=== PATIENT | female | born 1940 | race Caucasian/White ===

== ENCOUNTER 2020-07-22 08:53 | Outpatient (REF) | payer MEDICARE, SELFPAY ==
--- NOTE | 2020-07-22 | MM_ITS ---
EXAMINATION: MM DIAGNOSTIC DIGITAL BREAST TOMOSYNTHESIS, BILATERAL CLINICAL INFORMATION: Screening left breast study. Right breast calcifications inferior medially The lifetime risk of breast cancer based on the Tyrer-Cuzick Model is 0.8%. COMPARISON: Mammography: January 15, 2020 and studies dating back to May 24, 2011 TECHNIQUE: Digital breast tomosynthesis is performed in both the craniocaudal and mediolateral oblique views along with computer-aided detection (CAD). Synthesized 2D images are generated from the tomosynthesis. Spot magnification views of the right breast in craniocaudal and 90 degree mediolateral views. FINDINGS: The breasts are almost entirely fatty (ACR BI-RADS breast composition Category a). There is stable appearance of the linear calcifications about the deep inferior medial aspect of the right breast. No new abnormal dominant mass or new more suspicious grouping of microcalcifications are identified. Other vascular calcifications are evident. Recommend 1 year follow-up diagnostic study containing magnification views. There is a stable parenchymal pattern of the left breast without new abnormal dominant mass or suspicious grouping of microcalcifications. Results are provided to the patient at time of visit by the technologist. MM/MM tomosynthesis diagnostic BI IMPRESSION: There are no significant changes from prior study. ASSESSMENT: BI-RADS 3: Probably Benign RECOMMENDATION: Diagnostic mammography at time of next annual exam, due in 12 months. This patient's information was entered into a reminder system with a target due date for their next mammogram.
== END 2020-07-22 08:54 | disposition home or self-care (01) ==
LOC: HO.MAMMO 08:53
DX: R92.1 Mammographic calcification found on diagnostic imaging of breast (principal)
CPT/HCPCS: 77062; 77066

== ENCOUNTER 2020-10-29 07:43 | Outpatient (REF) | payer MEDICARE, SELFPAY ==
[2020-10-29 08:18] LABS: MANUAL DIFF FLAG NO
[2020-10-29 08:31] LABS: Basophils Percent Auto 0.9 % (0-2); Eosinophils Absolute Auto 0.8 X10*3/uL (0.0-0.4); Eosinophils Percent Auto 16.2 % (0-4); Hematocrit 39.5 % (37-47); Hemoglobin 12.6 g/dl (12.0-16.0); Imm Gran Abs Auto 0.01 X10*3/uL (0.00-0.03); Imm Gran Pct Auto 0.2 % (0.0-0.4); Lymphocytes Absolute Auto 1.4 X10*3/uL (1.2-4.9); Lymphocytes Percent Auto 30.2 % (20-40); Mean Corpuscular HGB Conc 31.9 g/dl (31.0-35.0); Mean Corpuscular Hemoglobin 28.4 pg (27.0-33.0); Mean Corpuscular Volume 89.2 fL (80-98); Monocytes Absolute Auto 0.4 X10*3/uL (0.1-1.2); Monocytes Percent Auto 8.5 % (2-11); Neutrophils Absolute Auto 2.1 X10*3/uL (2.0-8.3); Platelet Count 241 X10*3/uL (160-400); Red Blood Count 4.43 X10*6/uL (4.20-5.50); Red Cell Distribution Width 13.6 % (11.0-16.0); White Blood Count 4.7 X10*3/uL (4.8-10.8)
[2020-10-29 09:05] LABS: Alanine Aminotransferase 8 U/L (0-31); Albumin Level 4.1 g/dL (3.5-5.0); Alkaline Phosphatase 76 U/L (39-117); Anion Gap 11 (12-20); Aspartate Amino Transferase 16 U/L (5-31); Bilirubin Total 0.6 mg/dL (0.0-1.0); Blood Urea Nitrogen 9 mg/dL (9-16); Calcium 8.8 mg/dL (8.4-10.2); Carbon Dioxide 28 mmol/L (22-29); Chloride 107 mmol/L (96-108); Cholesterol 150 mg/dL; Estimated Glomerular Filt Rate > 60; Glucose Fasting 90 mg/dL (60-99); HDL Cholesterol 75 mg/dL; LDL Cholesterol Calculated 64 mg/dl; Potassium 4.9 mmol/L (3.3-5.1); Sodium 141 mmol/L (135-145); Total Protein 6.9 g/dL (6.5-8.0); Triglycerides 57 mg/dL
== END 2020-10-29 07:44 | disposition home or self-care (01) ==
LOC: HO.LAB 07:43
PROVIDERS: PCP Internal Medicine; Visit Provider Internal Medicine
DX: Z00.00 Encounter for general adult medical examination without abnormal findings (principal); E11.9 Type 2 diabetes mellitus without complications; E03.9 Hypothyroidism, unspecified
CPT/HCPCS: 36415; 80053; 80061; 84443; 85025

== ENCOUNTER 2021-02-25 07:01 | Emergency (ER) | payer MEDICARE, SELFPAY ==
--- NOTE | 2021-02-25 07:24 | ED.SKABFB ---
HPI - Skin/Abscess/Foreign Bdy General Chief complaint: General Medical Stated complaint: rash Time Seen by Provider: 02/25/21 07:23 Source: patient Mode of arrival: ambulatory Limitations: no limitations History of Present Illness MD complaint: lesion Onset (ago): day(s) (3) Tetanus up to date: yes Location: face Severity: mild Quality: pruritic Relieving factors: none Exacerbating factors: other (?after applying OTC cream) Context: new medication and recent illness (dx with poison anthony at - applied topical creams and was on oral prednisone thinks these caused hives on her face) Associated symptoms: denies other symptoms Treatments prior to arrival: OTC topical medication, Benadryl and corticosteroid Related Data Home Medications Medication Instructions Recorded Confirmed ketoconazole 2 % topical cream appl TOPICAL 10/17/20 10/28/20 omeprazole 20 mg tablet,delayed 20 mg PO DAILY 10/17/20 10/28/20 release acetaminophen 650 mg 650 mg PO Q12H 10/28/20 10/28/20 tablet,extended release albuterol sulfate 90 mcg/actuation 2 puff INHALATION Q4-6H PRN 10/28/20 10/28/20 aerosol inhaler aspirin 81 mg tablet,delayed 81 mg PO DAILY 10/28/20 10/28/20 release Previous Rx's Medication Instructions Recorded levothyroxine 75 mcg tablet 75 mcg PO DAILY #90 tab 10/26/20 amitriptyline 50 mg tablet 50 mg PO BEDTIME #90 tab 11/07/20 ezetimibe 10 mg tablet 10 mg PO DAILY #90 tab 11/07/20 rosuvastatin 10 mg tablet 10 mg PO DAILY #90 tab 11/07/20 ygoskpdzgs-jkytnzisqherw-ztbhvuhg 2 cap PO Q4-6H PRN #60 cap 01/31/21 50 mg-325 mg-40 mg capsule vpvnfjhrtp-bxkmndz-hxicxdxr 50 1 cap PO Q6H PRN #10 cap 02/13/21 mg-325 mg-40 mg capsule prednisone 10 mg tablet 10 mg PO .COMPLEX #45 tab 02/21/21 cetirizine 10 mg PO DAILY 7 Days #30 tab 02/25/21 diphenhydramine HCl [Benadryl] 1 appl TOPICAL BID PRN #103 ml 02/25/21 famotidine [Pepcid] 20 mg PO DAILY 7 Days #30 tab 02/25/21 hydrocortisone [Anti-Itch (HC)] 1 appl TOPICAL BID 7 Days #28.35 g 02/25/21 Allergies Allergy/AdvReac Type Severity Reaction Status Date / Time latex [LATEX] Allergy Intermediate SWELLING Verified 10/28/20 14:30 Penicillins [PENICILLINS] AdvReac Unknown HEADACHE Verified 10/28/20 14:30 Review of Systems Review of Systems: Constitutional : No Fever, No Chills ENT/Mouth : No sore throat, No Rhinorrhea Eyes: No Eye Pain, No Swelling, No Redness Cardiovascular : No Chest Pain, No SOB Respiratory : No Cough, No Sputum Gastrointestinal : No Nausea, No Vomiting, No Diarrhea, No abdominal Pain Genitourinary : No Dysuria, No Hematuria Musculoskeletal : No joint pain, No Myalgias, No Joint Swelling Skin : No Skin Lesions, positive skin rash Neuro : No Weakness, No Numbness, No Headache Psych : No Anxiety, No Depression PMFSH Past Medical History Attestation statement: The following information was validated with the patient. Medical History Hyperlipidemia Surgical History History of appendectomy History of hysterectomy History of tonsillectomy Social History Social History Alcohol intake: never Patient Tobacco Use Status: Never used Tobacco Use of substances other than those prescribed or required for medical reasons: No Advance Directives: No Advance Directives Information Provided: No Physical Exam Vital Signs: Appearance: Alert. Oriented X3. No acute distress. Eyes: Pupils equal, round and reactive to light. ENT: Pharynx normal. R cheek 3 large hives noted no vesicles, no warmth, no signs of cellulitis - no ttp Neck: Normal inspection. Neck supple. CVS: Normal heart rate and rhythm. Pulses normal. Respiratory: No respiratory distress. Breath sounds normal. Abdomen: Soft and nontender. Skin: Skin warm and dry. Normal skin color. Normal skin turgor. Extremities: No lower extremity edema. No calf ttp Neuro: Oriented X 3. No motor deficit. No sensory deficit. MDM - Skin/Abscess/Foreign Bdy MDM Narrative Medical decision making narrative: 80 yo female with recent ?contact dermatitis on R forearm she was started on oral prednisone the forearm rash is improved she applied topical benadryl on her face - noted swelling and hives to face, no airway issues - will stop prednisone, very brief and limited course of topical hydrocortisone to the hive area on her face, no vesicles or pain to suggest zoster Discharge Plan Discharge Clinical Impression: Hives Patient Disposition: Home, Self-Care Instructions: Urticaria (ED) Additional Instructions: return to ED for any worsening symptoms or concerns stop taking prednisone apply a very thin area of the hydrocortisone onto the hives on your face (ONLY THAT AREA) no other areas, if it improves stop applying the ointment before the 7 days is up, do not apply anything else to your fac at this time. Prescriptions: New famotidine [Pepcid] 20 mg tablet 20 mg PO DAILY 7 Days Qty: 30 RF: 0 hydrocortisone [Anti-Itch (HC)] 1 % ointment 1 appl topical BID 7 Days Qty: 28.35 RF: 0 cetirizine 10 mg tablet 10 mg PO DAILY 7 Days Qty: 30 RF: 0 Benadryl 2 % gel 1 appl topical BID PRN (Reason: itching) Qty: 103 RF: 0 No Action levothyroxine 75 mcg tablet 75 mcg PO DAILY Qty: 90 RF: 8 amitriptyline 50 mg tablet 50 mg PO BEDTIME Qty: 90 RF: 8 ezetimibe 10 mg tablet 10 mg PO DAILY Qty: 90 RF: 8 rosuvastatin 10 mg tablet 10 mg PO DAILY Qty: 90 RF: 8 tvgqaqyqkc-mxwlhkqwgxksl-qesq 50-325-40 mg capsule 2 cap PO Q4-6H PRN (Reason: pain) Qty: 60 RF: 0 axofxdcrcz-tumhpwi-qbobyfgy 50-325-40 mg capsule 1 cap PO Q6H PRN (Reason: pain) Qty: 10 RF: 0 albuterol sulfate 90 mcg/actuation HFA aerosol inhaler 2 puff inhalation Q4-6H PRNRF: 0 aspirin [Adult Low Dose Aspirin] 81 mg tablet,delayed release (DR/EC) 81 mg PO DAILY RF: 0 acetaminophen [Tylenol 8 Hour] 650 mg tablet extended release 650 mg PO Q12H RF: 0 ketoconazole 2 % cream topical RF: 0 omeprazole 20 mg tablet,delayed release (DR/EC) 20 mg PO DAILY RF: 0 prednisone 10 mg tablet 10 mg PO .COMPLEX Qty: 45 RF: 0
[2021-02-25 07:30] VITALS: BP 119/69; PULSE 73; O2SAT 96; BMI 26.4
== END 2021-02-25 07:56 | disposition home or self-care (01) ==
LOC: HO.ED 07:35
PROVIDERS: Emergency Provider Emergency Medicine; PCP Internal Medicine
DX: L50.9 Urticaria, unspecified (principal)
CPT/HCPCS: 99283

== ENCOUNTER 2021-02-27 06:35 | Emergency (ER) | payer MEDICARE, SELFPAY ==
[2021-02-27 07:06] VITALS: BP 123/73; PULSE 86; RESP 18; TEMP 36.8; O2SAT 96; BMI 26.1
--- NOTE | 2021-02-27 08:29 | PC.NURSE ---
Patient has has healing blister type lesions on right anterior forearm. Pt also has reddness and new blister type lesions under right breast, right upper abdomen, and on right side of face. Pt states areas itch. Pt states she thought she had poison anthony and PCP placed her on prednisone which she stopped taking whens new lesions on face and under right breast started.
[2021-02-27 09:29] VITALS: BP 130/68; PULSE 75; RESP 16
[2021-02-27] MEDS: Ketorolac Tromethamine 15 MG/ML VIAL IVPUSH (09:42)
[2021-02-27] MEDS: methylPREDNISolone Sod Succ 125 MG/2 ML VIAL IVPUSH (09:43)
[2021-02-27] MEDS: Famotidine/PF 20 MG/2 ML VIAL IVPUSH (09:48)
--- NOTE | 2021-02-27 09:56 | ED_ITS ---
HPI - Allergic Reaction General Chief complaint: Allergic Reaction Stated complaint: facial swelling/rash Time Seen by Provider: 02/27/21 08:53 Source: patient Mode of arrival: ambulatory History of Present Illness HPI narrative: 80yo F w/past medical history of hyperlipidemia, appendectomy, hysterectomy, tonsillectomy, to the ED complaining of worsening erythematous, pruritic rash to face, chest, beneath right breast, and right forearm x1.5 weeks. Was originally treated for poison anthony with topical creams and oral Prednisone however believes had allergic reaction to Prednisone/rash was worsening was seen in our ED on 02/25 Prednisone was discontinued however rash continued to worsen. Denies new exposures/soaps/lotions/detergents, recent travel, tick/insect bites, oral swelling/throat closing sensation, SOB, cough, wheezing MD complaint: allergic reaction and facial swelling Related Data Home Medications Medication Instructions Recorded Confirmed ketoconazole 2 % topical cream appl TOPICAL 10/17/20 10/28/20 omeprazole 20 mg tablet,delayed 20 mg PO DAILY 10/17/20 10/28/20 release acetaminophen 650 mg 650 mg PO Q12H 10/28/20 10/28/20 tablet,extended release albuterol sulfate 90 mcg/actuation 2 puff INHALATION Q4-6H PRN 10/28/20 10/28/20 aerosol inhaler aspirin 81 mg tablet,delayed 81 mg PO DAILY 10/28/20 10/28/20 release Previous Rx's Medication Instructions Recorded levothyroxine 75 mcg tablet 75 mcg PO DAILY #90 tab 10/26/20 amitriptyline 50 mg tablet 50 mg PO BEDTIME #90 tab 11/07/20 ezetimibe 10 mg tablet 10 mg PO DAILY #90 tab 11/07/20 rosuvastatin 10 mg tablet 10 mg PO DAILY #90 tab 11/07/20 phtdrnpzff-lbpcvzjsuxhjy-yukojiye 2 cap PO Q4-6H PRN #60 cap 01/31/21 50 mg-325 mg-40 mg capsule zfgicnaxbt-dcbkixn-oxsutvqa 50 1 cap PO Q6H PRN #10 cap 02/13/21 mg-325 mg-40 mg capsule prednisone 10 mg tablet 10 mg PO .COMPLEX #45 tab 02/21/21 cetirizine 10 mg PO DAILY 7 Days #30 tab 02/25/21 diphenhydramine HCl [Benadryl] 1 appl TOPICAL BID PRN #103 ml 02/25/21 famotidine [Pepcid] 20 mg PO DAILY 7 Days #30 tab 02/25/21 hydrocortisone [Anti-Itch (HC)] 1 appl TOPICAL BID 7 Days #28.35 g 02/25/21 diphenhydramine HCl [Benadryl] 25 mg PO Q6H PRN #14 cap 02/27/21 hydrocortisone [Anti-Itch (HC)] 1 appl TOPICAL BID PRN #28.35 g 02/27/21 Allergies Allergy/AdvReac Type Severity Reaction Status Date / Time latex [LATEX] Allergy Intermediate SWELLING Verified 10/28/20 14:30 Penicillins [PENICILLINS] AdvReac Unknown HEADACHE Verified 10/28/20 14:30 Review of Systems Review of Systems: Constitutional: No Fever, No Chills ENT/Mouth: No Hearing loss, No Ear Pain, No Hoarseness, No sore throat, No Swallowing Difficulty Eyes: No Eye Pain, No Swelling, No Redness, No Vision Changes Cardiovascular: No Chest Pain, No SOB, No Dyspnea on Exertion Respiratory: No Cough, No Sputum, No Wheezing Gastrointestinal: No Nausea, No Vomiting, No Abdominal pain Musculoskeletal: No joint pain Skin: No Skin Lesions, + rash Neuro: No Weakness, No Numbness Yes all other systems are reviewed and are negative [facility] Past Medical History Attestation statement: The following information was validated with the patient. Medical History Hyperlipidemia Surgical History History of appendectomy History of hysterectomy History of tonsillectomy Social History Social History Alcohol intake: never Patient Tobacco Use Status: Never used Tobacco Use of substances other than those prescribed or required for medical reasons: No Advance Directives: No Advance Directives Information Provided: No Physical Exam Vital Signs: Vital Signs: Last Vital Signs Temp 98.2 F 02/27/21 07:06 Pulse 75 02/27/21 09:29 Resp 16 02/27/21 09:29 BP 130/68 02/27/21 09:29 Pulse Ox 96 02/27/21 07:06 Body Mass Index 26.1 Const: General: cooperative, healthy appearing and no acute distress Orientation/consciousness: patient oriented x3 Limitations: no limitations HENMT: Head: Yes normal to inspection Ears: hearing grossly normal bilaterally General nose exam: Normal external nose present Mouth: Normal oral and palatal mucosa present Throat: Yes posterior oropharynx normal, Yes tonsils normal, Yes uvula midline, No uvula laterally displaced and No uvular edema Eyes: General: appearance normal, both eyes and all related structures EOM: EOMs intact bilaterally Neck: Neck: Yes normal visual inspection and Yes no meningeal signs Resp: Effort & Inspection: normal respiratory effort, not labored, no nasal flaring and no stridor Auscultation: clear to auscultation bilaterally, no rales and no wheezes Cardio: Rate: regular rate Heart sounds: S1 normal heart sound present and S2 normal heart sound present GI: Inspection: Yes normal to inspection Palpation (GI): Soft to palpation, nontender, no guarding and not rigid Skin: Other: Right-side of face with notable erythema/swelling/coalescent patches, with small patch noted to left chin. No mucous membrane involvement. No palm or sole involvement Erythematous raised patches noted to upper chest and beneath right breast Isolated patch noted to right forearm volar aspect No warmth, no fluctuance/induration, no streaking, no vesicles/drainage, nontender Wounds: no wounds Neuro: General: patient oriented x3 and no meningeal signs Gait exam (Neuro): Normal gait present Extrem: General: Yes normal to inspection Course Course Course Narrative: -1050--patient has been observed for over an hour after medications administered, reports mild symptomatic improvement, mild decrease in erythema/swelling noted to rash on forearms/face and chest. Denies SOB, throat closing/cough or wheezing. Lungs CTA. Discussed worrisome signs and symptoms and strict return precautions, she verbalized understanding feel safe for discharge home to follow-up with dermatology/PCP MDM - Allergic Reaction MDM Narrative Medical decision making narrative: 80yo F w/past medical history of hyperlipidemia, appendectomy, hysterectomy, tonsillectomy, to the ED complaining of worsening erythematous, pruritic rash to face, chest, beneath right breast, and right forearm x1.5 weeks. On exam vital signs stable, NAD/nontoxic appearing, physical exam as above consistent with likely contact dermatitis, no evidence of airway compromise, lungs CTA. Physical exam not consistent with shingles/no MM involvement. Case d/w Dr. Gaytan who also evaluated patient Plan to try IV Solu-Medrol, Pepcid, Toradol, observe and reassess and have patient follow-up with Dermatology Outpatient Discharge Plan Discharge Clinical Impression: Contact dermatitis Patient Disposition: Home, Self-Care Instructions: Contact Dermatitis (ED) Additional Instructions: Continue to take Zyrtec during the day as will help with her allergic reaction Take Benadryl as needed, take at night as it will make you drowsy Apply hydrocortisone steroid cream to your rash, avoid application to face/hands or genital region as may discolor skin You can apply topical Benadryl cream to your phase You should follow-up with Dermatology If her symptoms persist or worsen, he have shortness of breath, wheezing, any throat closing sensation/oral swelling return to the ED immediately Prescriptions: New diphenhydramine HCl [Benadryl] 25 mg capsule 25 mg PO Q6H PRN (Reason: allergic reaction) Qty: 14 RF: 0 hydrocortisone [Anti-Itch (HC)] 1 % ointment 1 appl topical BID PRN (Reason: allergic reaction) Qty: 28.35 RF: 0 No Action levothyroxine 75 mcg tablet 75 mcg PO DAILY Qty: 90 RF: 8 amitriptyline 50 mg tablet 50 mg PO BEDTIME Qty: 90 RF: 8 ezetimibe 10 mg tablet 10 mg PO DAILY Qty: 90 RF: 8 rosuvastatin 10 mg tablet 10 mg PO DAILY Qty: 90 RF: 8 pvstxnfloh-obmolwwjmzejl-blzc 50-325-40 mg capsule 2 cap PO Q4-6H PRN (Reason: pain) Qty: 60 RF: 0 rmklbjfpnb-vsovkxq-aroiunkd 50-325-40 mg capsule 1 cap PO Q6H PRN (Reason: pain) Qty: 10 RF: 0 famotidine [Pepcid] 20 mg tablet 20 mg PO DAILY 7 Days Qty: 30 RF: 0 hydrocortisone [Anti-Itch (HC)] 1 % ointment 1 appl topical BID 7 Days Qty: 28.35 RF: 0 cetirizine 10 mg tablet 10 mg PO DAILY 7 Days Qty: 30 RF: 0 Benadryl 2 % gel 1 appl topical BID PRN (Reason: itching) Qty: 103 RF: 0 albuterol sulfate 90 mcg/actuation HFA aerosol inhaler 2 puff inhalation Q4-6H PRNRF: 0 aspirin [Adult Low Dose Aspirin] 81 mg tablet,delayed release (DR/EC) 81 mg PO DAILY RF: 0 acetaminophen [Tylenol 8 Hour] 650 mg tablet extended release 650 mg PO Q12H RF: 0 ketoconazole 2 % cream topical RF: 0 omeprazole 20 mg tablet,delayed release (DR/EC) 20 mg PO DAILY RF: 0 prednisone 10 mg tablet 10 mg PO .COMPLEX Qty: 45 RF: 0
[2021-02-27 11:12] VITALS: BP 136/70; PULSE 86; RESP 17; O2SAT 96
== END 2021-02-27 11:30 | disposition home or self-care (01) ==
PROVIDERS: Emergency Provider Emergency Medicine; PCP Internal Medicine
DX: L25.9 Unspecified contact dermatitis, unspecified cause (principal)
CPT/HCPCS: 96374; 96375; 99284; J1885; J2930

== ENCOUNTER 2021-07-24 10:41 | Outpatient (REF) | payer MEDICARE, SELFPAY ==
--- NOTE | ~2021-07-24 | MM_ITS ---
EXAMINATION: MM DIAGNOSTIC DIGITAL BREAST TOMOSYNTHESIS, BILATERAL CLINICAL INFORMATION: Due for yearly. Follow-up probable benign calcifications posterior lower inner right breast. The lifetime risk of breast cancer based on the Tyrer-Cuzick Model is 1%. COMPARISON: Mammography: 07/22/2020, 01/15/2020, 08/14/2019, 08/04/2019 (BI-RADS 0) TECHNIQUE: Digital breast tomosynthesis is performed in both the craniocaudal and mediolateral oblique views along with computer-aided detection (CAD). Synthesized 2D images are generated from the tomosynthesis. Additional magnification views right breast are obtained in the CC and ML projections. FINDINGS: There are scattered areas of fibroglandular density (ACR BI-RADS breast composition Category b). Breast tissue composition borders on predominantly fatty. Parenchymal pattern is similar to prior studies. No interval mass or architectural abnormality or developing density. The calcifications for follow-up posterior inferior medial right breast are stable and now considered to be benign. Results are provided to the patient at time of visit by the technologist. MM/MM tomosynthesis diagnostic BI IMPRESSION: No mammographic evidence of malignancy. ASSESSMENT: BI-RADS 2: Benign RECOMMENDATION: Routine annual mammography screening. This patient's information was entered into a reminder system with a target due date for their next mammogram.
== END 2021-07-24 10:42 | disposition home or self-care (01) ==
LOC: HO.MAMMO 10:41
PROVIDERS: PCP Internal Medicine; Visit Provider Internal Medicine
DX: R92.1 Mammographic calcification found on diagnostic imaging of breast (principal)
CPT/HCPCS: 77062; 77066

== ENCOUNTER 2021-08-21 08:22 | Outpatient (REF) | payer MEDICARE, SELFPAY ==
[2021-08-21 08:53] LABS: Binax Now Covid-19 Ag Negative (Negative)
[2021-08-21 08:54] LABS: Binax Internal Control QC Valid
== END 2021-08-21 08:23 | disposition home or self-care (01) ==
LOC: HO.HMGCLDS 08:22
PROVIDERS: Visit Provider Internal Medicine
DX: Z20.822 Contact with and (suspected) exposure to COVID-19 (principal); J06.9 Acute upper respiratory infection, unspecified
CPT/HCPCS: 36415

== ENCOUNTER 2021-09-27 06:05 | Outpatient (REF) | payer MEDICARE, SELFPAY ==
[2021-09-27 08:23] LABS: Basophils Absolute Auto 0.1 X10*3/uL (0.0-0.2); Basophils Percent Auto 1.2 % (0-2); Eosinophils Absolute Auto 0.5 X10*3/uL (0.0-0.4); Eosinophils Percent Auto 10.3 % (0-4); Hematocrit 40.8 % (37.0-47.0); Hemoglobin 12.7 g/dl (12.0-16.0); Imm Gran Abs Auto 0.01 X10*3/uL (0.00-0.03); Imm Gran Pct Auto 0.2 % (0.0-0.4); Lymphocytes Absolute Auto 1.8 X10*3/uL (1.2-4.9); MANUAL DIFF FLAG NO; Mean Corpuscular HGB Conc 31.1 g/dl (31.0-35.0); Mean Corpuscular Volume 90.1 fL (80.0-98.0); Mean Platelet Volume 9.9 fL (9.4-12.3); Monocytes Absolute Auto 0.5 X10*3/uL (0.1-1.2); Monocytes Percent Auto 9.1 % (2-11); Neutrophils Absolute Auto 2.1 x10*3/uL (2.0-8.3); Neutrophils Percent Auto 43.2 % (45-73); Platelet Count 272 X10*3/uL (160-400); Red Blood Count 4.53 X10*6/uL (4.20-5.50)
[2021-09-27 09:02] LABS: Alanine Aminotransferase < 6 U/L (0-31); Alkaline Phosphatase 85 U/L (39-117); Anion Gap 10 (12-20); Aspartate Amino Transferase 16 U/L (5-31); Blood Urea Nitrogen 14 mg/dL (9-16); Carbon Dioxide 28 mmol/L (22-29); Chloride 106 mmol/L (96-108); Cholesterol 151 mg/dL; Estimated Glomerular Filt Rate > 60; Glucose Fasting 87 mg/dL (60-99); HDL Cholesterol 71 mg/dL; LDL Cholesterol Calculated 68 mg/dl; Potassium 4.9 mmol/L (3.3-5.1); Sodium 139 mmol/L (135-145); Total Protein 6.9 g/dL (6.5-8.0); Triglycerides 61 mg/dL
[2021-09-27 09:14] LABS: Thyroid Stimulating Hormone 1.57 uIU/mL (0.32-4.0)
[2021-09-27 09:17] LABS: Bilirubin Total 0.4 mg/dL (0.0-1.0)
== END 2021-09-27 06:06 | disposition home or self-care (01) ==
LOC: HO.LAB 06:05
PROVIDERS: PCP Internal Medicine; Visit Provider Internal Medicine
DX: Z00.00 Encounter for general adult medical examination without abnormal findings (principal); Z13.0 Encounter for screening for diseases of the blood and blood-forming organs and certain disorders involving the immune mechanism
CPT/HCPCS: 36415; 80053; 80061; 84443; 85025

== ENCOUNTER 2022-03-09 16:24 | Outpatient (REF) | payer MEDICARE, SELFPAY ==
[2022-03-09 17:10] LABS: Influenza A PCR NEGATIVE (Negative); Influenza B PCR NEGATIVE (Negative); Resp Syncy Virus RNA Qual PCR NEGATIVE (Negative); SARS COV2 PCR INHOUSE NEGATIVE (Negative)
== END 2022-03-09 16:25 | disposition home or self-care (01) ==
LOC: HO.LNP 16:24
DX: Z20.822 Contact with and (suspected) exposure to COVID-19 (principal); R05.9 Cough, unspecified
CPT/HCPCS: 0241U

== ENCOUNTER 2022-06-28 10:46 | Outpatient (REF) | payer MEDICARE, SELFPAY ==
--- NOTE | ~2022-06-28 | XR_ITS ---
EXAMINATION: XR CHEST CLINICAL INFORMATION: Cough COMPARISON: None TECHNIQUE: 2 views of the chest were obtained. FINDINGS: The lungs are well-expanded and clear. The heart size and pulmonary vascularity is normal. There is compression deformity T12 vertebra with sclerosis along the inferior endplate knee since 05/01/2016 XR/XR chest 2V IMPRESSION: 1. No acute cardiopulmonary process seen. 2. Compression deformity T12 vertebra with sclerosis along the inferior endplate. It is new since 2016 chest x-ray
[2022-06-28 12:38] LABS: Thyroid Stimulating Hormone 0.85 uIU/mL (0.32-4.0)
== END 2022-06-28 10:47 | disposition home or self-care (01) ==
LOC: HO.LAB 10:46
PROVIDERS: PCP Internal Medicine; Visit Provider Internal Medicine
DX: E03.9 Hypothyroidism, unspecified (principal); R05.9 Cough, unspecified
CPT/HCPCS: 36415; 71046; 84443

== ENCOUNTER 2022-07-23 12:01 | Outpatient (REF) | payer MEDICARE, SELFPAY ==
--- NOTE | ~2022-07-23 | XR_ITS ---
EXAMINATION: XR CHEST CLINICAL INFORMATION: Cough COMPARISON: Previous chest x-ray most recent June 2022 TECHNIQUE: 2 views of the chest were obtained. FINDINGS: The cardiac and mediastinal contours are stable. There is question of lower lobe bronchial wall thickening or small infiltrate seen on the lateral view. The lungs are otherwise clear. There is no pleural effusion or pneumothorax. There are degenerative changes of the spine. There is a T10 vertebral body compression fracture that appears old. XR/XR chest 2V IMPRESSION: Question lower lobe bronchial wall thickening or small infiltrate.
[2022-07-23 14:03] LABS: MANUAL DIFF FLAG NO
[2022-07-23 14:09] LABS: Basophils Absolute Auto 0.1 X10*3/uL (0.0-0.2); Basophils Percent Auto 0.9 % (0-2); Eosinophils Absolute Auto 0.5 X10*3/uL (0.0-0.4); Eosinophils Percent Auto 6.8 % (0-4); Hematocrit 38.7 % (37.0-47.0); Imm Gran Abs Auto 0.02 X10*3/uL (0.00-0.03); Imm Gran Pct Auto 0.3 % (0.0-0.4); Lymphocytes Percent Auto 26.7 % (20-40); Mean Corpuscular Hemoglobin 27.4 pg (27.0-33.0); Mean Corpuscular Volume 88.4 fL (80.0-98.0); Mean Platelet Volume 10.2 fL (9.4-12.3); Monocytes Absolute Auto 0.6 X10*3/uL (0.1-1.2); Monocytes Percent Auto 8.3 % (2-11); Neutrophils Absolute Auto 4.3 x10*3/uL (2.0-8.3); Platelet Count 268 X10*3/uL (160-400); Red Blood Count 4.38 X10*6/uL (4.20-5.50); White Blood Count 7.5 X10*3/uL (4.8-10.8)
[2022-07-23 14:17] LABS: Anion Gap 10 (12-20); Blood Urea Nitrogen 8 mg/dL (9-16); Calcium 8.6 mg/dL (8.4-10.2); Carbon Dioxide 27 mmol/L (22-29); Chloride 106 mmol/L (96-108); Estimated Glomerular Filt Rate > 60; Glucose Random 101 mg/dL (60-115); Potassium 4.1 mmol/L (3.3-5.1); Sodium 139 mmol/L (135-145)
== END 2022-07-23 12:02 | disposition home or self-care (01) ==
LOC: HO.HMGCX 12:01
PROVIDERS: PCP Internal Medicine; Visit Provider Physician Assistant
DX: R05.9 Cough, unspecified (principal); R42 Dizziness and giddiness
CPT/HCPCS: 36415; 71046; 80048; 85025

== ENCOUNTER 2022-08-08 08:46 | Outpatient (REF) | payer MEDICARE, SELFPAY ==
--- NOTE | ~2022-08-08 | MM_ITS ---
EXAMINATION: MM SCREENING DIGITAL BREAST TOMOSYNTHESIS, BILATERAL CLINICAL INFORMATION: Screening. Asymptomatic. The lifetime risk of breast cancer based on the Tyrer-Cuzick Model is 0.6%. COMPARISON: Mammography: July 24, 2021 and studies dating back to April 26, 2015 TECHNIQUE: Digital breast tomosynthesis is performed in both the craniocaudal and mediolateral oblique views along with computer-aided detection (CAD). Synthesized 2D images are generated from the tomosynthesis. FINDINGS: There are scattered areas of fibroglandular density (ACR BI-RADS breast composition Category b). There are no significant masses, abnormal calcifications, or other abnormalities. MM/MM tomosynthesis screening BI IMPRESSION: No significant changes ASSESSMENT: BI-RADS 1: Negative RECOMMENDATION: Routine annual mammography screening. This patient's information was entered into a reminder system with a target due date for their next mammogram.
== END 2022-08-08 08:47 | disposition home or self-care (01) ==
LOC: HO.MAMMO 08:46
PROVIDERS: PCP Internal Medicine; Visit Provider Internal Medicine
DX: Z12.31 Encounter for screening mammogram for malignant neoplasm of breast (principal)
CPT/HCPCS: 77063; 77067

== ENCOUNTER 2023-01-17 05:55 | Outpatient (REF) | payer MEDICARE, SELFPAY ==
[2023-01-17 08:03] LABS: Cholesterol 153 mg/dL; HDL Cholesterol 77 mg/dL; LDL Cholesterol Calculated 64 mg/dl; Triglycerides 62 mg/dL
[2023-01-17 08:21] LABS: Thyroid Stimulating Hormone 1.22 uIU/mL (0.32-4.0)
== END 2023-01-17 05:56 | disposition home or self-care (01) ==
LOC: HO.LAB 05:55
PROVIDERS: PCP Internal Medicine; Visit Provider Internal Medicine
DX: E78.5 Hyperlipidemia, unspecified (principal); E03.9 Hypothyroidism, unspecified
CPT/HCPCS: 36415; 80061; 84443

== ENCOUNTER 2023-01-30 09:42 | Outpatient (REF) | payer MEDICARE, SELFPAY ==
--- NOTE | ~2023-01-30 | XR_ITS ---
EXAMINATION: XR CHEST CLINICAL INFORMATION: Wheezing COMPARISON: Previous chest x-ray most recent July 2022 TECHNIQUE: 2 views of the chest were obtained. FINDINGS: The cardiac and mediastinal contours are stable. Lungs are clear. No pleural effusion or pneumothorax. Old unchanged lower thoracic vertebral body compression fracture Degenerative changes of the spine. XR/XR chest 2V IMPRESSION: No evidence for acute disease in the chest.
== END 2023-01-30 09:43 | disposition home or self-care (01) ==
LOC: HO.HMGCX 09:42
PROVIDERS: PCP Internal Medicine; Visit Provider Nurse Practitioner Family
DX: R05.9 Cough, unspecified (principal); R06.2 Wheezing
CPT/HCPCS: 71046

== ENCOUNTER 2023-04-01 08:17 | Outpatient (AMB) | payer MEDICARE, SELFPAY ==
[2023-04-01 08:23] VITALS: BP 118/74; PULSE 93; O2SAT 98; BMI 26.8
--- NOTE | 2023-04-01 08:23 | A.OFFPC_ITS ---
Vital Signs 04/01/23 08:23 Height 5 ft 4 in Weight 156 lb BMI 26.8 BP 118/74 Blood Pressure Location Lt brachial Position Sitting Pulse 93 Pulse Source Pulse Oximeter Pulse Oximetry (%) 98 Oxygen Delivery Method Room Air Intake Visit Reasons: 6 month f/u Allergies latex [LATEX] Allergy (Intermediate, Verified 04/01/23 08:26) SWELLING BACTRIM Allergy (Mild, Uncoded 04/01/23 08:26) Rash Medication List - Last Reconciled 04/01/23 by Dev Floyd MD acetaminophen ER (Tylenol 8 Hour) 650 mg PO Q12H albuterol sulfate 90 mcg/actuation 2 puffs inhalation Q4-6H amitriptyline 50 mg PO BEDTIME ezetimibe 10 mg PO DAILY hydrocortisone 1% (Anti-Itch (hydrocortisone)) 1 appl topical BID 7 days ketoconazole 2% appl topical levothyroxine 75 mcg PO DAILY omeprazole 20 mg PO DAILY rosuvastatin 10 mg PO DAILY Tobacco use date assessed: 09/28/22 Dental Screening Dental Screen Date: 04/01/23 Did you have a dental visit in the last 12 months?: No Did you have a dental problem in the last 6 months where you did not have access to dental care?: No Was dental information given to patient?: Patient has dentist HPI 6 month f/u HPI Details hyperlipidemia hypothyroidism and asthma; stable on rx PFSH Medical History Hyperlipidemia Hypothyroidism Surgical History History of appendectomy History of hysterectomy History of tonsillectomy Social History Housing: Condominium Alcohol intake: never Patient Tobacco Use Status: Never used Tobacco e-Cigarette/Vaping Use: Never Used Second Hand Smoke Exposure: No service: No Current occupational status: employed Cognitive needs: No Hearing needs: No Vision needs: No Questionnaire PHQ-9 Over the last 2 weeks, how often have you been bothered by any of the following problems? 1. Little interest or pleasure in doing things: not at all 2. Feeling down, depressed, or hopeless: not at all 3. Trouble falling or staying asleep, or sleeping too much: not at all 4. Feeling tired or having little energy: not at all 5. Poor appetite or overeating: not at all 6. Feeling bad about yourself - or that you are a failure or have let yourself or your family down: not at all 7. Trouble concentrating on things, such as reading the newspaper or watching television: not at all 8. Moving or speaking so slowly that other people could have noticed. Or the opposite - being so fidgety or restless that you have been moving around a lot more than usual: not at all 9. Thoughts that you would be better off or of hurting yourself in some way: not at all Total score: 0 Depression Screening Interpretation: Negative 53849 - PHQ-9 Billing: Yes Source: Developed by Drs. Angel Clarke, Alicia Mobley, Sukhi Schmitt and colleagues, with an educational radha from [employer]. Thrive Questionnaire Date Thrive assessed: 09/28/22 I am a: Patient What is your living situation today?: I have a steady place to live Within the past 12 months, did the food you bought not last and you didn't have the money to get more?: Never true Within the past 12 months, did you worry whether your food would run out before you got money to buy more?: Never true Currently or been in a relationship where the following occur: no concerns reported AUDIT C Alcohol Use Questionnaire (AUDIT-C) 1. How often do you have a drink containing alcohol?: Never 3. How often do you have six or more drinks on one occasion?: Never Total Score: 0 Score Reviewed/Action Taken: Yes CURTIS-7 AMB Questionnaire CURTIS-7 Date CURTIS - 7 assessed: 09/28/22 Feeling nervous, anxious, or on edge: 0 = Not at all Not being able to stop or control worryin = Not at all Worrying too much about different things: 0 = Not at all Trouble relaxin = Not at all Being so restless that it is hard to sit still: 0 = Not at all Becoming easily annoyed or irritable: 0 = Not at all Feeling afraid as if something awful might happen: 0 = Not at all Total CURTIS-7 score (0-4 normal; 5-9 mild; 10-14 moderate; 15-21 severe): 0 Source: Developed by Drs. Angel Clarke, Alicia Mobley, Sukhi Schmitt and colleagues, with an educational radha from [employer]. CURTIS-7 Assessment Billing CURTIS-7 Assessment Tool: CURTIS-7 Assessment 94428 Review of Systems Const Denies chills, Denies headache(s) and Denies weight loss ENT Denies headache(s) Card Denies chest pain, Denies syncope, Denies irregular heart rhythm and Denies dyspnea Resp Denies chest congestion, Denies cough and Denies dyspnea GI Denies abdominal pain, Denies change in stool character, Denies nausea and Denies vomiting Musc Denies deformity and Denies joint swelling Neuro Denies syncope and Denies headache(s) Physical exam (Primary Care) Vital Signs: Last Vital Signs Pulse 93 04/01/23 08:23 BP 118/74 04/01/23 08:23 Pulse Ox 98 04/01/23 08:23 Oxygen Delivery Method Room Air 04/01/23 08:23 BMI result Body Mass Index 26.8 Tobacco/Smoking Status: Tobacco use Status Tobacco use date assessed 09/28/22 04/01/23 08:29 Patient Tobacco Use Status Never used Tobacco 04/01/23 08:29 e-Cigarette/Vaping Use Never Used 04/01/23 08:29 PHQ-9: PHQ-9 Score PHQ-9: Total score 0 04/01/23 08:29 Depression Screening Interpretation: Negative Thrive Assessment: Date of Thrive Assessment Date Thrive assessed 09/28/22 04/01/23 08:29 Currently or been in a relationship where the following occur: no concerns reported Const General: cooperative, healthy appearing and comfortable Neck Neck: Yes normal visual inspection Chest Chest palpation & inspection: normal inspection of the chest Resp Effort & Inspection: normal respiratory effort Auscultation: clear to auscultation bilaterally Percussion: percussion normal Cardio Jugular venous distension: no JVD Rate: regular rate Rhythm: regular rhythm Assessment and Plan Assessment & Plan (1) Hypothyroidism: Code(s): E03.9 - Hypothyroidism, unspecified Plan: stable; same rx (2) Hyperlipidemia: Code(s): E78.5 - Hyperlipidemia, unspecified Plan: stable; same rx (3) Asthma: Code(s): J45.909 - Unspecified asthma, uncomplicated Plan: stable; same rx Orders: Orders Comprehensive [place]. Panel Fast Today N28.9 - Disorder of kidney and ureter, unspecified Lipid Panel Today E78.5 - Hyperlipidemia, unspecified Thyroid Stimulating Hormone Today E03.9 - Hypothyroidism, unspecified Complete Blood Count Auto Diff Today D64.9 - Anemia, unspecified Coding Level of Care Code Est Pt Level 4 (41147) Diagnoses Hypothyroidism E03.9 Hyperlipidemia E78.5 Asthma J45.909 Additional Codes CURTIS-7 Assessment Billing - CURTIS-7 Assessment Tool: CURTIS-7 Assessment 53562 ([id number])
== END 2023-04-01 08:54 | disposition home or self-care (01) ==
PROVIDERS: Visit Provider Internal Medicine
DX: E03.9 Hypothyroidism, unspecified (principal); E78.5 Hyperlipidemia, unspecified; J45.909 Unspecified asthma, uncomplicated
CPT/HCPCS: 99214

== ENCOUNTER 2023-06-04 08:02 | Outpatient (AMB) | payer MEDICARE, SELFPAY ==
[2023-06-04 08:02] VITALS: BP 110/72; PULSE 70; TEMP 36.2; O2SAT 96; BMI 26.4
--- NOTE | 2023-06-04 08:02 | AM.OFFWIN_ITS ---
Intake Vital Signs 06/04/23 08:02 Height 5 ft 4 in Weight 154 lb BMI 26.4 BP 110/72 Blood Pressure Location Lt brachial Position Sitting Pulse 70 Pulse Source Pulse Oximeter Temp 97.2 F Temp Source Temporal Artery Scan Pulse Oximetry (%) 96 Oxygen Delivery Method Room Air Intake Visit Reasons: EST/uti(lobby) Intake Note: pt is here for c/o possible uti states she is using the bathroom frequent and body aches Patient Tobacco Use Status: Never used Tobacco Allergies latex [LATEX] Allergy (Intermediate, Verified 06/04/23 08:20) SWELLING BACTRIM Allergy (Mild, Uncoded 06/04/23 08:20) Rash Medication List - Last Reconciled 06/04/23 by Shaheen Narayan MD acetaminophen ER (Tylenol 8 Hour) 650 mg PO Q12H albuterol sulfate 90 mcg/actuation 2 puffs inhalation Q4-6H amitriptyline 50 mg PO BEDTIME ezetimibe 10 mg PO DAILY hydrocortisone 1% (Anti-Itch (hydrocortisone)) 1 appl topical BID 7 days ketoconazole 2% appl topical levothyroxine 75 mcg PO DAILY omeprazole 20 mg PO DAILY rosuvastatin 10 mg PO DAILY Do you need a note to return to daycare/school/sports/work: Yes HPI EST/uti(lobby) HPI Details Patient presents for a sick visit. Reports symptoms of increased frequency of urination, burning on urination and discomfort in the suprapubic area. Symptoms started in the past few days. No fevers or chills. No nausea or vomiting. PFSH Medical History Hyperlipidemia Hypothyroidism Surgical History History of appendectomy History of hysterectomy History of tonsillectomy Social History Housing: Condominium Alcohol intake: never Patient Tobacco Use Status: Never used Tobacco e-Cigarette/Vaping Use: Never Used Second Hand Smoke Exposure: No service: No Current occupational status: employed Cognitive needs: No Hearing needs: No Vision needs: No Physical Exam Vital Signs: Last Vital Signs Temp 97.2 F 06/04/23 08:02 Pulse 70 06/04/23 08:02 BP 110/72 06/04/23 08:02 Pulse Ox 96 06/04/23 08:02 Oxygen Delivery Method Room Air 06/04/23 08:02 BMI result Body Mass Index 26.4 General: Yes bladder normal to palpation and Yes no CVA tenderness Bimanual exam- vagina & uterus: bladder normal to palpation Back/Spine/Pelvis Back: no CVA tenderness Results AMB Urinalysis, Automated UA Leukoctes 500 Francisco Javier/uL Last Edit by Luis Enrique Goyal CMA on 06/04/23 08:1 7 UA Nitrite Negative Last Edit by Luis Enrique Goyal CMA on 06/04/23 08:17 UA Urobilinogen 0.2 mg/dL Last Edit by Luis Enrique Goyal CMA on 06/04/23 08 :17 UA Protein 0 mg/dL Last Edit by Luis Enrique Goyal CMA on 06/04/23 08:17 UA pH 6.0 Last Edit by Luis Enrique Goyal CMA on 06/04/23 08:17 UA Blood 200 Gui/uL Last Edit by Luis Enrique Goyal CMA on 06/04/23 08:17 UA Specific [place] 1.010 Last Edit by Luis Enrique Goyal CMA on 06/04/23 08:17 UA Ketone Negative Last Edit by Luis Enrique Goyal CMA on 06/04/23 08:17 UA Bilirubin 0 mg/dL Last Edit by Luis Enrique Goyal CMA on 06/04/23 08:17 UA Glucose 0 mg/dL Last Edit by Luis Enrique Goyal CMA on 06/04/23 08:17 Results Reviewed Results Reviewed: Laboratory Last Values Urine pH (Auto) 6.0 06/04/23 08:15 Specific [place] (Auto) 1.010 06/04/23 08:15 Urine Protein (Auto) 0 mg/dL 06/04/23 08:15 Glucose (UA)(Auto) 0 mg/dL 06/04/23 08:15 Urine Ketones (Auto) Negative 06/04/23 08:15 Urine Blood (Auto) 200 Gui/uL 06/04/23 08:15 Urine Nitrite (Auto) Negative 06/04/23 08:15 Urine Bilirubin (Auto) 0 mg/dL 06/04/23 08:15 Urine Urobilinogen (Auto) 0.2 mg/dL 06/04/23 08:15 Leukocyte Esterase (Auto) 500 Francisco Javier/uL 06/04/23 08:15 Assessment & Plan Assessment & Plan (1) Urinary tract infection: Code(s): N39.0 - Urinary tract infection, site not specified Plan: Take antibiotics and Pyridium as directed. Increase fluid intake. If symptoms of burning persist, new onset of fever or lower back pain, to follow-up at the clinic. Orders: Orders AMB Urinalysis Automated Today Z13.9 - Encounter for screening, unspecified Medications: New phenazopyridine (Pyridium) 200 mg PO TID 9 tabs 0RF 3 days ciprofloxacin HCl 250 mg PO BID 10 tabs 0RF 5 days Coding Level of Care Code Est Pt Level 3 (57916) Diagnoses Urinary tract infection N39.0
== END 2023-06-04 08:40 | disposition home or self-care (01) ==
PROVIDERS: PCP Internal Medicine; Visit Provider Internal Medicine
DX: N39.0 Urinary tract infection, site not specified (principal); R35.0 Frequency of micturition
CPT/HCPCS: 81003; 99213

== ENCOUNTER 2023-08-01 06:10 | Outpatient (REF) | payer MEDICARE, SELFPAY ==
[2023-08-01 07:20] LABS: Basophils Absolute Auto 0.1 X10*3/uL (0.0-0.2); Basophils Percent Auto 1.2 % (0-2); Eosinophils Absolute Auto 0.4 X10*3/uL (0.0-0.4); Eosinophils Percent Auto 8.5 % (0-4); Hematocrit 39.4 % (37.0-47.0); Hemoglobin 12.7 g/dl (12.0-16.0); Imm Gran Abs Auto 0.01 X10*3/uL (0.00-0.03); Imm Gran Pct Auto 0.2 % (0.0-0.4); Lymphocytes Absolute Auto 1.7 X10*3/uL (1.2-4.9); Lymphocytes Percent Auto 34.7 % (20-40); MANUAL DIFF FLAG NO; Mean Corpuscular HGB Conc 32.2 g/dl (31.0-35.0); Mean Corpuscular Hemoglobin 29.1 pg (27.0-33.0); Mean Corpuscular Volume 90.2 fL (80.0-98.0); Monocytes Absolute Auto 0.4 X10*3/uL (0.1-1.2); Monocytes Percent Auto 9.1 % (2-11); Neutrophils Absolute Auto 2.2 x10*3/uL (2.0-8.3); Neutrophils Percent Auto 46.3 % (45-73); Platelet Count 251 X10*3/uL (160-400); Red Blood Count 4.37 X10*6/uL (4.20-5.50); Red Cell Distribution Width 13.7 % (11.0-16.0); White Blood Count 4.8 X10*3/uL (4.8-10.8)
[2023-08-01 08:08] LABS: Alanine Aminotransferase 7 U/L (0-31); Alkaline Phosphatase 79 U/L (39-117); Anion Gap 11 (12-20); Aspartate Amino Transferase 15 U/L (5-31); Bilirubin Total 0.5 mg/dL (0.0-1.0); Blood Urea Nitrogen 9 mg/dL (9-16); Carbon Dioxide 28 mmol/L (22-29); Chloride 107 mmol/L (96-108); Cholesterol 141 mg/dL (<200); Estimated Glomerular Filt Rate > 60; Glucose Fasting 86 mg/dL (60-99); HDL Cholesterol 72 mg/dL (>40); LDL Cholesterol Calculated 59 mg/dL (<100); Potassium 4.4 mmol/L (3.3-5.1); Sodium 142 mmol/L (135-145); Triglycerides 51 mg/dL (<150)
== END 2023-08-01 06:11 | disposition home or self-care (01) ==
LOC: HO.LAB 06:10
PROVIDERS: PCP Internal Medicine; Visit Provider Internal Medicine
DX: E03.9 Hypothyroidism, unspecified (principal); D64.9 Anemia, unspecified; E78.5 Hyperlipidemia, unspecified; N28.9 Disorder of kidney and ureter, unspecified
CPT/HCPCS: 36415; 80053; 80061; 84443; 85025

== ENCOUNTER 2023-08-13 09:12 | Outpatient (REF) | payer MEDICARE, SELFPAY ==
--- NOTE | ~2023-08-13 | MM_ITS ---
EXAMINATION: MM SCREENING DIGITAL BREAST TOMOSYNTHESIS, BILATERAL CLINICAL INFORMATION: Screening. Asymptomatic. COMPARISON: Mammography: 07/31/2022, 07/24/2021, 07/22/2020, 01/15/2020, 08/14/2019, 08/04/2019. TECHNIQUE: Digital breast tomosynthesis is performed in both the craniocaudal and mediolateral oblique views along with computer-aided detection (CAD). Synthesized 2D images are generated from the tomosynthesis. FINDINGS: There are scattered areas of fibroglandular density (ACR BI-RADS breast composition Category b). There are no significant masses, abnormal calcifications, or other abnormalities. Benign calcifications noted medial right breast, unchanged. These are benign. There are vascular calcifications. MM/MM tomosynthesis screening BI IMPRESSION: No mammographic evidence of malignancy. ASSESSMENT: BI-RADS BI-RADS 2 - Benign Findings RECOMMENDATION: Routine annual mammography screening. 1 year F/U This examination should not preclude the clinical evaluation of a suspicious palpable abnormality. This patient's information was entered into a reminder system with a target due date for their next mammogram.
== END 2023-08-13 09:13 | disposition home or self-care (01) ==
LOC: HO.MAMMO 09:12
PROVIDERS: PCP Internal Medicine; Visit Provider Internal Medicine
DX: Z12.31 Encounter for screening mammogram for malignant neoplasm of breast (principal)
CPT/HCPCS: 77063; 77067

== ENCOUNTER → 2023-08-13 09:30 | Outpatient (BNV) | payer MEDICARE, SELFPAY | PROVIDERS: PCP Internal Medicine; Visit Provider Radiology Diagnostic Radiology | DX: Z12.31 Encounter for screening mammogram for malignant neoplasm of breast (principal) | CPT/HCPCS: 77063; 77067 ==

== ENCOUNTER 2023-08-19 13:09 | Outpatient (AMB) | payer MEDICARE, SELFPAY ==
[2023-08-19 13:12] VITALS: BP 102/62; PULSE 88; O2SAT 99; BMI 26.4
--- NOTE | 2023-08-19 13:12 | MHC.PC.OV ---
Vital Signs 08/19/23 13:12 Height 5 ft 4 in Weight 154 lb BMI 26.4 BP 102/62 Blood Pressure Location Lt brachial Position Sitting Pulse 88 Pulse Source Pulse Oximeter Pulse Oximetry (%) 99 Oxygen Delivery Method Room Air Intake Visit Reasons: 4mon f/u Ball Assembler Required: No Loom Starter: Not Required per policy Accompanied by: Self / Same As Patient Allergies latex [LATEX] Allergy (Intermediate, Verified 08/19/23 13:12) SWELLING BACTRIM Allergy (Mild, Uncoded 08/19/23 13:12) Rash Medication List - Last Reconciled 08/19/23 by Dev Floyd MD acetaminophen ER (Tylenol 8 Hour) 650 mg PO Q12H albuterol sulfate 90 mcg/actuation 2 puffs inhalation Q4-6H amitriptyline 50 mg PO BEDTIME ezetimibe 10 mg PO DAILY levothyroxine 75 mcg PO DAILY omeprazole 20 mg PO DAILY rosuvastatin 10 mg PO DAILY Tobacco use date assessed: 08/19/23 Fall risk assessment: No Falls in past year Last assessed Fall Risk: 08/19/23 Dental Screening Dental Screen Date: 08/19/23 Did you have a dental visit in the last 12 months?: Yes Did you have a dental problem in the last 6 months where you did not have access to dental care?: No Was dental information given to patient?: Patient has dentist HPI 4mon f/u HPI Details hypothyroidism on rx; doing well PFSH Medical History Hypothyroidism Hyperlipidemia Surgical History History of appendectomy History of tonsillectomy History of hysterectomy Social History Housing: Condominium Alcohol intake: never Patient Tobacco Use Status: Never used Tobacco e-Cigarette/Vaping Use: Never Used Second Hand Smoke Exposure: No service: No Current occupational status: employed Cognitive needs: No Hearing needs: No Vision needs: No Questionnaire PHQ-9 Over the last 2 weeks, how often have you been bothered by any of the following problems? 1. Little interest or pleasure in doing things: not at all 2. Feeling down, depressed, or hopeless: not at all 3. Trouble falling or staying asleep, or sleeping too much: not at all 4. Feeling tired or having little energy: not at all 5. Poor appetite or overeating: not at all 6. Feeling bad about yourself - or that you are a failure or have let yourself or your family down: not at all 7. Trouble concentrating on things, such as reading the newspaper or watching television: not at all 8. Moving or speaking so slowly that other people could have noticed. Or the opposite - being so fidgety or restless that you have been moving around a lot more than usual: not at all 9. Thoughts that you would be better off or of hurting yourself in some way: not at all Total score: 0 Depression Screening Interpretation: Negative Depression Screening Done: Yes 64420 - PHQ-9 Billing: Yes Source: Developed by Drs. Angel Clarke, Alicia Mobley, Sukhi Schmitt and colleagues, with an educational radha from [employer]. Thrive Questionnaire Date Thrive assessed: 08/19/23 I am a: Patient What is your living situation today?: I have a steady place to live Within the past 12 months, did the food you bought not last and you didn't have the money to get more?: Never true Within the past 12 months, did you worry whether your food would run out before you got money to buy more?: Never true Do you have trouble paying for medicines?: No Do you have trouble getting transportation to medical appointments?: No Do you have trouble paying your heating and electricity bill?: No Do you have trouble taking care of your child, family member or friend?: No Do you have trouble with day-to-day activities such as bathing, preparing meals, shopping, managing finances, etc.?: No Are you currently unemployed and looking for a job?: No Are you interested in more education?: No Please select the resources that you would like help with: None AUDIT C Alcohol Use Questionnaire (AUDIT-C) 1. How often do you have a drink containing alcohol?: Never 3. How often do you have six or more drinks on one occasion?: Never Total Score: 0 Score Reviewed/Action Taken: Yes CURTIS-7 AMB Questionnaire CURTIS-7 Date CURTIS - 7 assessed: 08/19/23 Feeling nervous, anxious, or on edge: 0 = Not at all Not being able to stop or control worryin = Not at all Worrying too much about different things: 0 = Not at all Trouble relaxin = Not at all Being so restless that it is hard to sit still: 0 = Not at all Becoming easily annoyed or irritable: 0 = Not at all Feeling afraid as if something awful might happen: 0 = Not at all Total CURTIS-7 score (0-4 normal; 5-9 mild; 10-14 moderate; 15-21 severe): 0 Source: Developed by Drs. Angel Clarke, Alicia Mobley, Sukhi Schmitt and colleagues, with an educational radha from [employer]. Review of Systems Const Denies chills, Denies headache(s) and Denies weight loss ENT Denies headache(s) Card Denies chest pain, Denies syncope, Denies irregular heart rhythm and Denies dyspnea Resp Denies chest congestion, Denies cough and Denies dyspnea GI Denies abdominal pain, Denies change in stool character, Denies nausea and Denies vomiting Musc Denies deformity and Denies joint swelling Neuro Denies syncope and Denies headache(s) Physical exam (Primary Care) Vital Signs: Last Vital Signs Pulse 88 08/19/23 13:12 BP 102/62 08/19/23 13:12 Pulse Ox 99 08/19/23 13:12 Oxygen Delivery Method Room Air 08/19/23 13:12 BMI result Body Mass Index 26.4 Tobacco/Smoking Status: Tobacco use Status Tobacco use date assessed 08/19/23 08/19/23 13:19 Patient Tobacco Use Status Never used Tobacco 08/19/23 13:19 e-Cigarette/Vaping Use Never Used 08/19/23 13:19 PHQ-9: PHQ-9 Score PHQ-9: Total score 0 08/19/23 13:19 Depression Screening Interpretation: Negative Thrive Assessment: Date of Thrive Assessment Date Thrive assessed 08/19/23 08/19/23 13:19 Const General: cooperative, comfortable, no acute distress and alert Neck Neck: Yes no lymphadenopathy Thyroid: Thyroid normal Resp Effort & Inspection: normal respiratory effort Auscultation: clear to auscultation bilaterally Percussion: percussion normal Cardio Jugular venous distension: no JVD Palpation: normal PMI Rate: regular rate Rhythm: regular rhythm Heart sounds: S1 normal heart sound present and S2 normal heart sound present GI Inspection: Yes normal to inspection Palpation (GI): No hepatosplenomegaly present Skin General skin exam: no rashes or lesions noted Extrem General: Yes no clubbing, cyanosis or edema Assessment and Plan Assessment & Plan (1) Hypothyroidism: Code(s): E03.9 - Hypothyroidism, unspecified Plan: stable; same rx Orders: Orders Lipid Panel Today E78.5 - Hyperlipidemia, unspecified Thyroid Stimulating Hormone Today E03.9 - Hypothyroidism, unspecified Coding Level of Care Code Est Pt Level 3 (16391) Diagnoses Hypothyroidism E03.9
== END 2023-08-19 13:31 | disposition home or self-care (01) ==
PROVIDERS: PCP Internal Medicine; Visit Provider Internal Medicine
DX: E03.9 Hypothyroidism, unspecified (principal)
CPT/HCPCS: 99213

== ENCOUNTER 2023-10-24 13:51 | Emergency (ER) | payer MEDICARE, SELFPAY ==
--- NOTE | ~2023-10-24 | US_ITS ---
EXAMINATION: US VENOUS ULTRASOUND WITH DOPPLER LOWER EXTREMITY, LEFT CLINICAL INFORMATION: Edema. Pain. COMPARISON: None available. TECHNIQUE: Ultrasound of the deep veins is performed from the hip to the calf with compression sonography and color and pulse Doppler assessment. Spectral analysis with color-flow imaging is performed. FINDINGS: There is normal venous compression and respiratory variation and augmented flow. The visualized common femoral vein, superficial femoral vein, profunda femoral vein, popliteal vein, and the trifurcation region shows no evidence of deep venous thrombosis. There is noncompressible thrombus within the left gastrocnemius vein which is a muscular branch in the upper calf. There are also thrombosed noncompressible varicosities contain soft tissues of the calf There is no significant popliteal fossa cyst. US/US venous duplex LE LT IMPRESSION: 1. No DVT demonstrated in the left lower extremity. 2. Thrombus within the gastrocnemius vein in the upper calf. 3. Thrombosed varicosities in the calf. This critical result was discussed with Delma Butler on 1513 hours 10/24/2023 and it was ascertained that the content and urgency of the report was understood at the time of direct communication.
--- NOTE | 2023-10-24 14:17 | ED_ITS ---
HPI - General Adult General Chief complaint: Extremity Problem Stated complaint: Pain in both legs Time Seen by Provider: 10/24/23 21:03 Source: patient and old records reviewed Mode of arrival: ambulatory Limitations: no limitations History of Present Illness HPI narrative: 83 yo female with PMH of HLD, hypothyroidism here with c/o injury to both legs but moslty left after hitting dog leash run on back of legs since then pain and swelling on left leg near varicose veins that has only gotten worse. no cp/sob, no fevers. worried she has clot. Has not had one before. No hx of bleeding issues. MD complaint: leg pain and swelling Onset (ago): week(s) (1+) Location: left, right and lower extremity Radiation: non-radiation Severity: moderate Quality: aching Pain Consistency: intermittent Relieving factors: none Exacerbating factors: movement Associated symptoms: denies other symptoms Treatments prior to arrival: none Related Data Home Medications Medication Instructions Recorded Confirmed omeprazole 20 mg tablet,delayed 20 mg PO DAILY 10/17/20 08/19/23 release acetaminophen 650 mg 650 mg PO Q12H 10/28/20 08/19/23 tablet,extended release (Tylenol 8 Hour) Previous Rx's Medication Instructions Recorded albuterol sulfate 90 mcg/actuation 2 puff inhalation Q4-6H #6.7 grams 08/21/21 aerosol inhaler amitriptyline 50 mg tablet 50 mg PO BEDTIME #90 tabs 01/28/23 ezetimibe 10 mg tablet 10 mg PO DAILY #90 tabs 01/28/23 levothyroxine 75 mcg tablet 75 mcg PO DAILY #90 tabs 01/28/23 rosuvastatin 10 mg tablet 10 mg PO DAILY #90 tabs 01/28/23 apixaban 5 mg (74 tabs) tablets in See Rx Instructions .Route 10/24/23 a dose pack (Eliquis DVT-PE Treat .COMPLEX #74 ea 30D Start) Allergies Allergy/AdvReac Type Severity Reaction Status Date / Time latex [LATEX] Allergy Intermediate SWELLING Verified 10/24/23 14:18 BACTRIM Allergy Mild Rash Uncoded 08/19/23 13:12 Review of Systems 2 Review of Systems: Constitutional : No Fever, No Chills ENT/Mouth : No Ear Pain, No Hoarseness, No sore throat Eyes: No Eye Pain, No Swelling, No Redness, No Foreign Body Cardiovascular : No Chest Pain, No SOB, pos swelling, pos leg pain Respiratory : No Cough, No Dyspnea Gastrointestinal : No Nausea, No Vomiting, No Diarrhea, No abdominal Pain Genitourinary : No Dysuria, No Hematuria Musculoskeletal : positive joint pain, No Myalgias, No Joint Swelling Skin : No Skin lacerations, No rash Neuro : No Weakness, No Numbness, No Loss of Consciousness, No Dizziness, No Headache All other systems reviewed and are negative [facility] Past Medical History Attestation statement: The following information was validated with the patient. Source: old records reviewed Medical History Hypothyroidism Hyperlipidemia Surgical History History of appendectomy History of tonsillectomy History of hysterectomy Social History [facility] Alcohol intake: never Patient Tobacco Use Status: Never used Tobacco e-Cigarette/Vaping Use: Never Used Second Hand Smoke Exposure: No Advance Directives: No Advance Directives Information Provided: No service: No Current occupational status: employed Cognitive needs: No Hearing needs: No Vision needs: No Physical Exam ED Vital Signs: Vital Signs - 24 hr 10/24/23 14:18 10/24/23 19:13 10/24/23 21:31 Temperature 98.7 F 98.1 F 98.1 F Pulse Rate 90 89 84 Respiratory Rate 16 16 16 Blood Pressure 142/80 H 119/76 119/76 Pulse Oximetry 96 94 94 Oxygen Delivery Method Room Air Room Air Room Air BMI result Body Mass Index 26.7 Appearance: Alert. Oriented X3. No acute distress. Eyes: Pupils equal, round and reactive to light. ENT: Pharynx normal. Neck: Normal inspection. Neck supple. CVS: Normal heart rate and rhythm. Pulses normal. Respiratory: No respiratory distress. Breath sounds normal. Abdomen: Soft and nontender. Skin: Skin warm and dry. Normal skin color. Normal skin turgor. Extremities: No lower extremity edema. L leg mild erythema near two areas of ropy cord varicose veins ttp along and swelling of gastroc area distal NV intact Neuro: Oriented X 3. No motor deficit. No sensory deficit. Course Course Course Narrative: This is an RME: Additional HPI, ROS, PE not included below will be deferred to primary provider. 83 yo f hx of asthma, hypothyroisism, hld presents w/ complaints of LLE pain and swelling. No hx of clots in the past. Non smoker. No recent travel. Medications Administered Discontinued Medications Generic Name Dose Route Start Last Admin Trade Name Freq PRN Reason Stop Dose Admin Apixaban 10 mg 10/24/23 21:17 10/24/23 21:23 Apixaban 5 Mg Tablet PO 10/24/23 21:18 10 mg ONCE ONE Administration Medical Decision Making Medical Decision Making MDM Narrative: 83 yo female with PMH of HLD, hypothyroidism here with leg pain and swelling after trauma she is NV intact no signs of infection no CP/SOB no isssues with prior bleeding if she needs DOAC. No signs of PE. Possible DVT vs superficial thrombophlebitis - labs and US ordered Differential Diagnosis Differential Diagnoses: The differential diagnosis associated with the presentation includes DVT vs superficial thrombophlebitis Admission/Observation Consideration of admission/observation: Escalation of care including admission/observation considered not toxic stable for DC Lab Data [facility] Lab Attestation statement: I reviewed the patient's lab results. 10/24/23 15:41 10/24/23 15:41 Labs: Lab Results 10/24/23 Range/Units 15:41 WBC 5.4 (4.8-10.8) X10*3/uL RBC 4.28 (4.20-5.50) X10*6/uL Hgb 12.4 (12.0-16.0) g/dl Hct 37.6 (37.0-47.0) % MCV 87.9 (80.0-98.0) fL MCH 29.0 (27.0-33.0) pg MCHC 33.0 (31.0-35.0) g/dl RDW 13.8 (11.0-16.0) % Plt Count 262 (160-400) X10*3/uL MPV 9.9 (9.4-12.3) fL Immature Gran % (Auto) 0.4 (0.0-0.4) % Neut % (Auto) 50.7 (45-73) % Lymph % (Auto) 29.4 (20-40) % [place] % (Auto) 9.1 (2-11) % Eos % (Auto) 9.5 H (0-4) % Baso % (Auto) 0.9 (0-2) % Lymph # (Auto) 1.6 (1.2-4.9) X10*3/uL [place] # (Auto) 0.5 (0.1-1.2) X10*3/uL Eos # (Auto) 0.5 H (0.0-0.4) X10*3/uL Baso # (Auto) 0.1 (0.0-0.2) X10*3/uL Abs Immat Gran (auto) 0.02 (0.00-0.03) X10*3/uL Absolute Neuts (auto) 2.7 (2.0-8.3) x10*3/uL Absolute Nucleated RBC 0.000 (0.0-0.012) X10*3/uL Nucleated RBC % (auto) 0.0 (0.0-0.2) /100WBC PT 11.6 (11.1-13.3) SEC INR 1.0 (0.9-1.1) Sodium 141 (135-145) mmol/L Potassium 3.6 (3.3-5.1) mmol/L Chloride 106 (96-108) mmol/L Carbon Dioxide 25 (22-29) mmol/L Anion Gap 14 (12-20) BUN 6 L (9-16) mg/dL Creatinine 0.76 (0.5-1.4) mg/dL Estim Creat Clear Calc 55.8 Estimated GFR > 60 Random Glucose 111 (60-115) mg/dL Calcium 8.8 (8.4-10.2) mg/dL Total Bilirubin 0.3 (0.0-1.0) mg/dL AST 15 (5-31) U/L ALT 7 (0-31) U/L Alkaline Phosphatase 105 (39-117) U/L Total Protein 7.1 (6.5-8.0) g/dL Albumin 3.9 (3.5-5.0) g/dL Independent Interpretation I performed an independent interpretation of an: Ultrasound Interpretation: gastrocnemius is intramuscular branch classified on uptodate as deep system will treat with eliquis Radiology Impression Discussion of test interpretation with radiology: I have reviewed the radiologist's reading. Independent Historian Clinical information obtained from an independent historian. History obtained from or confirmed by: Spouse External Record Review External record reviewed: Inpatient record Prescription Management I considered prescription management with: Other discussed bleeding risks of DOAC Discharge Plan Discharge Clinical Impression: DVT (deep venous thrombosis) Qualifiers: DVT location: lower extremity Affected thrombotic vein of extremity: other lower extremity vein Chronicity: acute Laterality: left Qualified Code(s): I 82.492 - Acute embolism and thrombosis of other specified deep vein of left lower extremity Superficial thrombophlebitis Qualifiers: Superficial thrombophlebitis-Involved body area: lower extremity Laterality: l eft Qualified Code(s): I80.02 - Phlebitis and thrombophlebitis of superficial vessels of left lower extremity Patient Disposition: Home, Self-Care Instructions: Apixaban (By mouth), Superficial Thrombophlebitis (ED), Deep Vein Thrombosis (ED) Additional Instructions: return for worsening redness, swelling, pain or any other concerns. you need to seek help for uncontrolled bleeding, black or bloody stools, or hitting your head. follow up with your doctor in the next week Prescriptions: New Eliquis DVT-PE Treat 30D Start 5 mg (74 tabs) tablets,dose pack See Rx Instructions .ROUTE .COMPLEX Qty: 74 0RF Rx Instructions: 10mg BID for 7 days then 5mg BID to finish pack. No Action albuterol sulfate 90 mcg/actuation HFA aerosol inhaler 2 puff inhalation Q4-6H Qty: 6.7 0RF rosuvastatin 10 mg tablet 10 mg PO DAILY Qty: 90 8RF ezetimibe 10 mg tablet 10 mg PO DAILY Qty: 90 8RF levothyroxine 75 mcg tablet 75 mcg PO DAILY Qty: 90 8RF amitriptyline 50 mg tablet 50 mg PO BEDTIME Qty: 90 8RF acetaminophen [Tylenol 8 Hour] 650 mg tablet extended release 650 mg PO Q12H omeprazole 20 mg tablet,delayed release (DR/EC) 20 mg PO DAILY Interventions: ED Discharge Assessment Last Done: 10/24/23 21:31 Discharge Date/Time: 10/24/23 21:32
[2023-10-24 14:18] VITALS: BP 142/80; PULSE 90; RESP 16; TEMP 37.1; O2SAT 96; BMI 26.7
[2023-10-24 16:00] LABS: MANUAL DIFF FLAG NO
[2023-10-24 16:02] LABS: Basophils Absolute Auto 0.1 X10*3/uL (0.0-0.2); Basophils Percent Auto 0.9 % (0-2); Eosinophils Absolute Auto 0.5 X10*3/uL (0.0-0.4); Eosinophils Percent Auto 9.5 % (0-4); Hematocrit 37.6 % (37.0-47.0); Hemoglobin 12.4 g/dl (12.0-16.0); Imm Gran Abs Auto 0.02 X10*3/uL (0.00-0.03); Imm Gran Pct Auto 0.4 % (0.0-0.4); Lymphocytes Absolute Auto 1.6 X10*3/uL (1.2-4.9); Lymphocytes Percent Auto 29.4 % (20-40); Mean Corpuscular Volume 87.9 fL (80.0-98.0); Mean Platelet Volume 9.9 fL (9.4-12.3); Monocytes Absolute Auto 0.5 X10*3/uL (0.1-1.2); Monocytes Percent Auto 9.1 % (2-11); Neutrophils Absolute Auto 2.7 x10*3/uL (2.0-8.3); Neutrophils Percent Auto 50.7 % (45-73); Platelet Count 262 X10*3/uL (160-400); Red Blood Count 4.28 X10*6/uL (4.20-5.50); Red Cell Distribution Width 13.8 % (11.0-16.0); White Blood Count 5.4 X10*3/uL (4.8-10.8)
[2023-10-24 16:07] LABS: Prothrombin Time 11.6 SEC (11.1-13.3)
[2023-10-24 16:16] LABS: Alanine Aminotransferase 7 U/L (0-31); Albumin Level 3.9 g/dL (3.5-5.0); Alkaline Phosphatase 105 U/L (39-117); Anion Gap 14 (12-20); Aspartate Amino Transferase 15 U/L (5-31); Bilirubin Total 0.3 mg/dL (0.0-1.0); Blood Urea Nitrogen 6 mg/dL (9-16); Calcium 8.8 mg/dL (8.4-10.2); Carbon Dioxide 25 mmol/L (22-29); Chloride 106 mmol/L (96-108); Creatinine Clr Calc Pharmacy 55.8; Estimated Glomerular Filt Rate > 60; Glucose Random 111 mg/dL (60-115); Potassium 3.6 mmol/L (3.3-5.1); Sodium 141 mmol/L (135-145); Total Protein 7.1 g/dL (6.5-8.0)
[2023-10-24 19:13] VITALS: BP 119/76; PULSE 89; RESP 16; TEMP 36.7; O2SAT 94
[2023-10-24] MEDS: Apixaban 5 MG TABLET 10 MG PO (21:23)
[2023-10-24 21:31] VITALS: BP 119/76; PULSE 84; RESP 16; TEMP 36.7; O2SAT 94
== END 2023-10-24 21:32 | disposition home or self-care (01) ==
PROVIDERS: Physician Assistant; Emergency Provider Emergency Medicine; PCP Internal Medicine
DX: I80.02 Phlebitis and thrombophlebitis of superficial vessels of left lower extremity (principal); M79.604 Pain in right leg; M79.605 Pain in left leg; R60.0 Localized edema; Z79.899 Other long term (current) drug therapy
CPT/HCPCS: 36415; 80053; 85025; 85610; 93971; 99282; 99284

== ENCOUNTER 2023-10-28 10:46 | Outpatient (AMB) | payer MEDICARE, SELFPAY ==
[2023-10-28 11:04] VITALS: BP 120/66; PULSE 90; O2SAT 96; BMI 25.7
--- NOTE | 2023-10-28 11:04 | A.OFFPC_ITS ---
Vital Signs 10/28/23 11:04 Height 5 ft 4 in Weight 150 lb BMI 25.7 BP 120/66 Blood Pressure Location Lt brachial Position Sitting Pulse 90 Pulse Source Pulse Oximeter Pulse Oximetry (%) 96 Oxygen Delivery Method Room Air [place] [facility] [place] blood clot Running Rigger: Not Required per policy Accompanied by: Self / Same As Patient Allergies latex [LATEX] Allergy (Intermediate, Verified 10/28/23 11:04) SWELLING BACTRIM Allergy (Mild, Uncoded 10/28/23 11:04) Rash Medication List - Last Reconciled 10/28/23 by Dev Floyd MD acetaminophen ER (Tylenol 8 Hour) 650 mg PO Q12H albuterol sulfate 90 mcg/actuation 2 puffs inhalation Q4-6H amitriptyline 50 mg PO BEDTIME apixaban (Eliquis DVT-PE Treat 30D Start) 10mg BID for 7 days then 5mg BID to finish pack. ezetimibe 10 mg PO DAILY levothyroxine 75 mcg PO DAILY omeprazole 20 mg PO DAILY rosuvastatin 10 mg PO DAILY Tobacco use date assessed: 08/19/23 Fall risk assessment: No Falls in past year Last assessed Fall Risk: 10/28/23 Dental Screening Dental Screen Date: 10/28/23 Did you have a dental visit in the last 12 months?: Yes Did you have a dental problem in the last 6 months where you did not have access to dental care?: No Was dental information given to patient?: Patient has dentist [place] [facility] [place] blood clot HPI Details went to the er with superficial phlebitis left lower leg PFSH Medical History Hypothyroidism Hyperlipidemia Surgical History History of appendectomy History of tonsillectomy History of hysterectomy Social History Housing: Condominium Alcohol intake: never Patient Tobacco Use Status: Never used Tobacco e-Cigarette/Vaping Use: Never Used Second Hand Smoke Exposure: No service: No Current occupational status: employed Cognitive needs: No Hearing needs: No Vision needs: No Questionnaire Thrive Questionnaire Date Thrive assessed: 08/19/23 CURTIS-7 AMB Questionnaire CURTIS-7 Date CURTIS - 7 assessed: 08/19/23 Source: Developed by Drs. Angel Clarke, Alicia Mobley, Sukhi Schmitt and colleagues, with an educational radha from [employer]. Review of Systems Const Denies chills, Denies headache(s) and Denies weight loss ENT Denies headache(s) Card Denies chest pain, Denies syncope, Denies irregular heart rhythm and Denies dyspnea Resp Denies chest congestion, Denies cough and Denies dyspnea GI Denies abdominal pain, Denies change in stool character, Denies nausea and Denies vomiting Musc Denies deformity and Denies joint swelling Neuro Denies syncope and Denies headache(s) Physical exam (Primary Care) Vital Signs: Last Vital Signs Pulse 90 10/28/23 11:04 BP 120/66 10/28/23 11:04 Pulse Ox 96 10/28/23 11:04 Oxygen Delivery Method Room Air 10/28/23 11:04 BMI result Body Mass Index 25.7 Tobacco/Smoking Status: Tobacco use Status Tobacco use date assessed 08/19/23 10/28/23 11:09 Patient Tobacco Use Status Never used Tobacco 10/28/23 11:09 e-Cigarette/Vaping Use Never Used 10/28/23 11:09 Thrive Assessment: Date of Thrive Assessment Date Thrive assessed 08/19/23 10/28/23 11:09 Const General: cooperative, comfortable, no acute distress and alert Neck Neck: Yes no lymphadenopathy Thyroid: Thyroid normal Resp Effort & Inspection: normal respiratory effort Auscultation: clear to auscultation bilaterally Percussion: percussion normal Cardio Jugular venous distension: no JVD Palpation: normal PMI Rate: regular rate Rhythm: regular rhythm Heart sounds: S1 normal heart sound present and S2 normal heart sound present GI Inspection: Yes normal to inspection Palpation (GI): No hepatosplenomegaly present Skin General skin exam: no rashes or lesions noted Extrem General: Yes no clubbing, cyanosis or edema Assessment and Plan Assessment & Plan (1) Varicose veins of bilateral lower extremities with pain: Code(s): I83.813 - Varicose veins of bilateral lower extremities with pain Plan: rx and [id number] Orders: Referrals Vascular Surgery Referral I83.813 - Varicose veins of bilateral lower extremities with pain Medications: New naproxen (Naprosyn) 500 mg PO BID PRN 60 tabs 0RF pain Discontinued apixaban (Eliquis DVT-PE Treat 30D Start) Discontinued Reason: Ancillary Entered New Order 10mg BID for 7 days then 5mg BID to finish pack. 74 ea 0RF Coding Level of Care Code Est Pt Level 3 (34325) Diagnoses Varicose veins of bilateral lower extremities with pain I83.813
== END 2023-10-28 11:21 | disposition home or self-care (01) ==
LOC: HO.HMGH 11:04
PROVIDERS: PCP Internal Medicine; Visit Provider Internal Medicine
DX: I83.813 Varicose veins of bilateral lower extremities with pain (principal)
CPT/HCPCS: 99213

== ENCOUNTER 2023-12-10 11:11 | Outpatient (AMB) | payer MEDICARE, SELFPAY ==
--- NOTE | 2023-12-10 11:12 | A.OFFVIS_ITS ---
Intake Visit Reasons: [facility] [place] 10/23: superficial phlebitis left lower leg Intake Note: Patient presents for follow up after a 10/23 ED visit for phlebitis of left leg. Patient has bilateral ankle swelling, varicose veins, spider veins and discoloration. States she also has restless legs at night. Patient uses compre ssion socks daily and states they help. Also has stinging sensations in her veins after standing for a long period of time. Accompanied by: Self / Same As Patient Allergies latex [LATEX] Allergy (Intermediate, Verified 10/28/23 11:04) SWELLING BACTRIM Allergy (Mild, Uncoded 10/28/23 11:04) Rash HPI HPI [facility] [place] 10/23: superficial phlebitis left lower leg: Details: Very pleasant 83-year-old female patient presents for painful varicose veins. Complaints include pain over varicosities, swelling of lower extremities, cramping, fatigue, and heaviness of the lower extremities. 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 It is noted more so in left leg. Patient denies any previous venous surgery or injections. Patient denies any history of DVT/ PE. Patient did report an episode of phlebitis of the left lower extremity where she presented to the emergency room on 10/24/2023 Trial of compression includes - prescription compression since 10/24/2023 They now present for vascular evaluation regarding their varicose veins. [facility] Medical History Hypothyroidism Hyperlipidemia Surgical History History of appendectomy History of tonsillectomy History of hysterectomy Social History Housing: Condominium Alcohol intake: never Patient Tobacco Use Status: Never used Tobacco e-Cigarette/Vaping Use: Never Used Second Hand Smoke Exposure: No service: No Current occupational status: employed Cognitive needs: No Hearing needs: No Vision needs: No Review of Systems Const Reports as per HPI ENT Reports no additional complaints Card Denies chest pain, Denies chest pain at rest and Denies chest pain with activity Resp Denies chest congestion and Denies cough GI Reports no additional complaints Musc Details: pain over varicosities, aching of lower extremities, swelling, cramping, heaviness and tiredness, itching Denies abnormal gait Skin/Breast Reports pruritus and Denies wounds Neuro Reports no additional complaints and Denies abnormal gait Psych Denies no additional complaints Physical Exam Const General: cooperative, healthy appearing and comfortable Orientation/consciousness: oriented to person, oriented to place and oriented to time Neck Carotids: no bruits Chest Chest palpation & inspection: normal inspection of the chest and normal palpation of entire chest wall Resp Effort & Inspection: normal respiratory effort and able to speak in complete sentences Cardio Rate: regular rate Heart sounds: S1 normal heart sound present and S2 normal heart sound present Peripheral pulses: Peripheral pulses 2+ throughout GI Inspection: Yes normal to inspection Skin Other: +2 edema, multiple spider telangiectasias CEAP Classification C4 - skin color changes Ep - Etiology Primary As - superficial veins P - reflux General skin exam: dry skin Neuro General: oriented to person, oriented to place and oriented to time Extrem Right lower extremity: full ROM, normal capillary refill and edema Left lower extremity: full ROM, normal capillary refill and edema Psych Mental Status: mental status grossly normal Assessment & Plan Assessment & Plan (1) Varicose veins of left lower extremity with inflammation: Code(s): I83.12 - Varicose veins of left lower extremity with inflammation Category: Medical Plan: In short, the patient has evidence of venous insufficiency. I have discussed the pathophysiology with the patient. In addition I have provided informational material regarding venous disease to the patient. We have discussed conservative measures including compression, elevation, and exercise. I have also provided a handout regarding appropriate use of compression stockings and where to purchase good compression stockings as well. I have taken the liberty of ordering venous insufficiency testing with the patient. They will follow up with me after testing. The patient had an opportunity to ask questions regarding the treatment plan. All questions were answered. Imaging studies, laboratory studies and physical exam results were discussed and reviewed in detail. No major barriers to understanding were identified. The patient expressed understanding and agreement with the above treatment plan. The patient is aware they should contact our office by phone for worsening of the current condition or the appearance of new symptoms. Thank you for allowing me to participate in the [facility] care of this patient. If you have any questions or concerns regarding the treatment for the above condition please do not hesitate to contact me. The office telephone contact is [phone]. This note is constructed using voice recognition software. While every effort has been made to ensure accuracy, power engineer errors may have been included. Thank you for allowing me to participate in the care of your patient. Yours sincerely, Vicente Abad MD, FACS, R.P.V.I. Orders: Orders US venous duplex LE BI 1 Week I83.12 - Varicose veins of left lower extremity with inflammation Coding Level of Care Code New Pt Level 4 (31129) Diagnoses Varicose veins of left lower extremity with inflammation I83.12
== END 2023-12-10 11:34 | disposition home or self-care (01) ==
PROVIDERS: PCP Internal Medicine; Visit Provider Surgery Vascular Surgery
DX: I83.12 Varicose veins of left lower extremity with inflammation (principal)
CPT/HCPCS: 99203

== ENCOUNTER → 2023-12-10 11:11 | Outpatient (BNVA) | payer MEDICARE, SELFPAY | PROVIDERS: PCP Internal Medicine; Visit Provider Surgery Vascular Surgery | DX: I83.12 Varicose veins of left lower extremity with inflammation (principal) | CPT/HCPCS: 99202 ==

== ENCOUNTER 2023-12-13 08:05 | Outpatient (REF) | payer MEDICARE, SELFPAY ==
--- NOTE | ~2023-12-13 | US_ITS ---
EXAMINATION: US LOWER EXTREMITY VENOUS (REFLUX EXAM), BILATERAL CLINICAL INDICATION: Varicose veins of the left lower extremity with inflammation COMPARISON: Venous duplex 10/24/2023 TECHNIQUE: Color flow triplex imaging and compression Doppler was performed to evaluate both the deep and the superficial systems bilaterally. To evaluate the superficial system, the examination was performed in the upright position. Color-flow Doppler ultrasound and compression ultrasound were utilized. In addition, maneuvers were utilized to demonstrate reflux. FINDINGS: 1. DEEP VENOUS ULTRASOUND OF THE RIGHT LOWER EXTREMITY: Common Femoral Vein: Compressible, normal respiratory variation and augmented flow. Femoral Vein: Compressible, normal color flow and augmentation. Popliteal Vein: Compressible, normal augmentation. Deep Reflux: There is no evidence of reflux in the deep system in either the common femoral vein or the popliteal vein. There is no evidence of a Hagen's cyst. 2. SUPERFICIAL ULTRASOUND WITH DOPPLER OF RIGHT LOWER EXTREMITY: GREAT SAPHENOUS VEIN: Saphenofemoral Junction: 0.7 cm; Reflux: 0 ms Proximal Thigh: 0.4 cm; Reflux: 0 ms Mid Thigh: 0.2 cm; Reflux: 0 ms Above Knee: 0.2 cm; Reflux: 0 ms At Knee: 0.2 cm; Reflux: 0 ms Below Knee: 0.2 cm; Reflux: 680 ms Mid Calf: 0.2 cm; Reflux: 0 ms Ankle: 0.1 cm; Reflux: 0 ms DUPLICATED MEDIAL GREAT SAPHENOUS VEIN: Diameter: None Imaged Reflux: NA DUPLICATED LATERAL GREAT SAPHENOUS VEIN: Diameter: None Imaged Reflux: NA SMALL SAPHENOUS VEIN: Proximal: 0.3 cm; Reflux: 0 ms Distal: 0.2 cm; Reflux: 0 ms VEIN OF GIACOMINI: None Imaged. PERFORATORS: Location: Right great saphenous vein, midcalf Size: 0.1 cm Reflux: 0 ms Location: Left great saphenous vein, mid calf Size: 0.2 cm Reflux: 0 ms Location: Left great saphenous vein, distal calf Size: 0.3 cm Reflux: 0 ms VARICOSITIES: Location: None Imaged Size: NA Reflux: NA 3. DEEP VENOUS ULTRASOUND OF THE LEFT LOWER EXTREMITY: Common Femoral Vein: Compressible, normal respiratory variation and augmented flow. Femoral Vein: Compressible, normal color flow and augmentation. Popliteal Vein: Compressible, normal augmentation. Deep Reflux: There is no evidence of reflux in the deep system in either the common femoral vein or the popliteal vein. There is no evidence of a Hagen's cyst. 4. SUPERFICIAL ULTRASOUND WITH DOPPLER OF LEFT LOWER EXTREMITY: GREAT SAPHENOUS VEIN: Saphenofemoral Junction: 0.9 cm; Reflux: 0 ms Proximal Thigh: 0.5 cm; Reflux: >2388 ms Mid Thigh: 0.6 cm; Reflux: >2524 ms Above Knee: 0.3 cm; Reflux: >2964 ms At Knee: 0.2 cm; Reflux: >2464 ms Below Knee: 0.3 cm; Reflux: >2392 ms Mid Calf: 0.2 cm; Reflux: 0 ms Ankle: 0.3 cm; Reflux: 0 ms DUPLICATED MEDIAL GREAT SAPHENOUS VEIN: Diameter: None Imaged Reflux: NA DUPLICATED LATERAL GREAT SAPHENOUS VEIN: Diameter: 0.4 cm Reflux: 0 ms SMALL SAPHENOUS VEIN: Proximal: 0.3 cm; Reflux: 0 ms Distal: 0.2 cm; Reflux: 0 ms VEIN OF GIACOMINI: None Imaged. PERFORATORS: Location: None Imaged Size: NA Reflux: NA VARICOSITIES: Location: None Imaged Size: NA Reflux: NA US/US venous duplex LE BI IMPRESSION: 1. Right: Minimal reflux in the great saphenous vein below the knee. 2. Left: Greater than 2000 ms of reflux in the left great saphenous vein from the proximal thigh to the below knee segment. The left great saphenous vein measures up to 0.6 cm in diameter. 3. Nonrefluxing perforators noted in the mid to distal right calf.
== END 2023-12-13 08:06 | disposition home or self-care (01) ==
LOC: HO.US 08:05
PROVIDERS: PCP Internal Medicine; Visit Provider Surgery Vascular Surgery
DX: I83.12 Varicose veins of left lower extremity with inflammation (principal)
CPT/HCPCS: 93970

== ENCOUNTER 2024-02-21 06:01 | Outpatient (REF) | payer MEDICARE, SELFPAY ==
[2024-02-21 07:32] LABS: Cholesterol 245 mg/dL (<200); HDL Cholesterol 68 mg/dL (>40); LDL Cholesterol Calculated 164 mg/dL (<100); Triglycerides 68 mg/dL (<150)
[2024-02-21 07:47] LABS: Thyroid Stimulating Hormone 1.38 uIU/mL (0.32-4.0)
== END 2024-02-21 06:02 | disposition home or self-care (01) ==
LOC: HO.LAB 06:01
PROVIDERS: PCP Internal Medicine; Visit Provider Internal Medicine
DX: E03.9 Hypothyroidism, unspecified (principal); E78.5 Hyperlipidemia, unspecified
CPT/HCPCS: 36415; 80061; 84443

== ENCOUNTER 2024-02-24 13:17 | Outpatient (AMB) | payer MEDICARE, SELFPAY ==
[2024-02-24 13:23] VITALS: BMI 25.7
--- NOTE | 2024-02-24 13:23 | A.OFFVIS_ITS ---
Vital Signs 02/24/24 13:23 Height 5 ft 4 in Weight 150 lb BMI 25.7 Intake Visit Reasons: f/u s/p 12/13/23 Intake Note: follow up 12/13/23 s/p Hx Left LE phlebitis & bilateral ankle swelling,stinging, VV,spider veins & discoloration. Uses compression daily and has restless legs at night. Accompanied by: Self / Same As Patient Allergies latex [LATEX] Allergy (Intermediate, Verified 02/24/24 13:29) SWELLING BACTRIM Allergy (Mild, Uncoded 02/24/24 13:29) Rash HPI HPI f/u s/p 12/13/23: Details: Very pleasant 83-year-old female presents for follow-up with venous insufficiency testing. She reports swelling and discomfort left greater than right. She has multiple varicosities and spider telangiectasias. They have been a source of pain and discomfort for her. She has had minimal relief with venous compression. She now presents for routine follow-up [facility]LY [facility] Medical History Hypothyroidism Hyperlipidemia Surgical History History of appendectomy History of tonsillectomy History of hysterectomy Social History Housing: Condominium Alcohol intake: never Patient Tobacco Use Status: Never used Tobacco e-Cigarette/Vaping Use: Never Used Second Hand Smoke Exposure: No service: No Current occupational status: employed Cognitive needs: No Hearing needs: No Vision needs: No Review of Systems Const Reports as per HPI ENT Reports no additional complaints Card Denies chest pain, Denies chest pain at rest and Denies chest pain with activity Resp Denies chest congestion and Denies cough GI Reports no additional complaints Musc Details: pain over varicosities, aching of lower extremities, swelling, cramping, heaviness and tiredness, itching Denies abnormal gait Skin/Breast Reports pruritus and Denies wounds Neuro Reports no additional complaints and Denies abnormal gait Psych Denies no additional complaints Physical Exam Vital Signs: BMI result Body Mass Index 25.7 Const General: cooperative, healthy appearing and comfortable Orientation/consciousness: oriented to person, oriented to place and oriented to time Neck Carotids: no bruits Chest Chest palpation & inspection: normal inspection of the chest and normal palpation of entire chest wall Resp Effort & Inspection: normal respiratory effort and able to speak in complete sentences Cardio Rate: regular rate Heart sounds: S1 normal heart sound present and S2 normal heart sound present Peripheral pulses: Peripheral pulses 2+ throughout GI Inspection: Yes normal to inspection Skin Other: +2 edema, large rope-like varicosities greater than 4 mm CEAP Classification C4 - skin color changes Ep - Etiology Primary As - superficial veins P - reflux General skin exam: dry skin Neuro General: oriented to person, oriented to place and oriented to time Extrem Right lower extremity: full ROM, normal capillary refill and edema Left lower extremity: full ROM, normal capillary refill and edema Psych Mental Status: mental status grossly normal Results Reviewed Results Reviewed: Brief summary of venous insufficiency testing is as follows: right great saphenous vein: negative right small saphenous vein: negative right accessory vein: none present left great saphenous vein: Positive left small saphenous vein: negative left accessory vein: none present Please note there is no evidence of any venous aneurysms or significant tortuosity Assessment & Plan Assessment & Plan (1) Varicose veins of left lower extremity with inflammation: Code(s): I83.12 - Varicose veins of left lower extremity with inflammation Category: Medical Plan: This patient has varicose veins with inflammation. They continue to be a source of discomfort for the patient. The patient has tried conservative treatm ent with compression, leg elevation and exercise program for over 3 months time. They have been compliant with all treatment. This has provided minimal relief for the patient. I do not anticipate this course of treatment will alter the underlying etiology. The patient has been scheduled for lower extremity venous treatment inclusive of --- left great saphenous vein Cyanoacralate ablation. Risks, benefits, and complications of this procedure has been discussed in detail with the patient including but not limited to bleeding, infection, and the development of a DVT. The patient has demonstrated a clear understanding and has consented. We will schedule the patient as soon as possible. Thank you for allowing us to participate in this patient's care. If there are any questions or concerns please do not hesitate to contact us. Coding Level of Care Code Est Pt Level 4 (73402) Diagnoses Varicose veins of left lower extremity with inflammation I83.12
== END 2024-02-24 13:58 | disposition home or self-care (01) ==
PROVIDERS: PCP Internal Medicine; Visit Provider Surgery Vascular Surgery
DX: I83.12 Varicose veins of left lower extremity with inflammation (principal)
CPT/HCPCS: 99214

== ENCOUNTER → 2024-02-24 13:17 | Outpatient (BNVA) | payer MEDICARE, SELFPAY | PROVIDERS: PCP Internal Medicine; Visit Provider Surgery Vascular Surgery | DX: I83.12 Varicose veins of left lower extremity with inflammation (principal) | CPT/HCPCS: 99212 ==

== ENCOUNTER 2024-02-25 13:07 | Outpatient (AMB) | payer MEDICARE, SELFPAY ==
--- NOTE | 2024-02-25 13:21 | A.OFFPC_ITS ---
Vital Signs 02/25/24 13:25 Height 5 ft 4 in Weight 150 lb BMI 25.7 BP 110/64 Blood Pressure Location Lt brachial Position Sitting Pulse 94 Pulse Source Pulse Oximeter Pulse Oximetry (%) 95 Oxygen Delivery Method Room Air Intake Visit Reasons: 6 month f/u Legal Compliance Officer Required: No Accompanied by: Self / Same As Patient Allergies latex [LATEX] Allergy (Intermediate, Verified 02/25/24 13:28) SWELLING BACTRIM Allergy (Mild, Uncoded 02/25/24 13:28) Rash Medication List - Last Reconciled 02/25/24 by Dev Floyd MD acetaminophen ER (Tylenol 8 Hour) 650 mg PO Q12H albuterol sulfate 90 mcg/actuation 2 puffs inhalation Q4-6H amitriptyline 50 mg PO BEDTIME ezetimibe 10 mg PO DAILY levothyroxine 75 mcg PO DAILY naproxen (Naprosyn) 500 mg PO BID PRN omeprazole 20 mg PO DAILY rosuvastatin 10 mg PO DAILY Tobacco use date assessed: 08/19/23 Fall risk assessment: No Falls in past year Last assessed Fall Risk: 02/25/24 Dental Screening Dental Screen Date: 10/28/23 HPI 6 month f/u HPI Details hyperlipidemia. stopped rx and chol went up; to restart PFSH Medical History Hypothyroidism Hyperlipidemia Surgical History History of appendectomy History of tonsillectomy History of hysterectomy Social History Housing: Condominium Alcohol intake: never Patient Tobacco Use Status: Never used Tobacco e-Cigarette/Vaping Use: Never Used Second Hand Smoke Exposure: No service: No Current occupational status: employed Cognitive needs: No Hearing needs: No Vision needs: No Questionnaire Thrive Questionnaire Date Thrive assessed: 08/19/23 CURTIS-7 AMB Questionnaire CURTIS-7 Date CURTIS - 7 assessed: 08/19/23 Source: Developed by Drs. Angel Clarke, Alicia Mobley, Sukhi Schmitt and colleagues, with an educational radha from [employer]. Review of Systems Const Denies chills, Denies headache(s) and Denies weight loss ENT Denies headache(s) Card Denies chest pain, Denies syncope, Denies irregular heart rhythm and Denies dyspnea Resp Denies chest congestion, Denies cough and Denies dyspnea GI Denies abdominal pain, Denies change in stool character, Denies nausea and Denies vomiting Musc Denies deformity and Denies joint swelling Neuro Denies syncope and Denies headache(s) Physical exam (Primary Care) Vital Signs: Last Vital Signs Pulse 94 02/25/24 13:25 BP 110/64 02/25/24 13:25 Pulse Ox 95 02/25/24 13:25 Oxygen Delivery Method Room Air 02/25/24 13:25 BMI result Body Mass Index 25.7 Tobacco/Smoking Status: Tobacco use Status Tobacco use date assessed 08/19/23 02/25/24 13:21 Patient Tobacco Use Status Never used Tobacco 02/25/24 13:21 e-Cigarette/Vaping Use Never Used 02/25/24 13:21 Thrive Assessment: Date of Thrive Assessment Date Thrive assessed 08/19/23 02/25/24 13:21 Const General: cooperative, comfortable, no acute distress and alert Neck Neck: Yes no lymphadenopathy Thyroid: Thyroid normal Resp Effort & Inspection: normal respiratory effort Auscultation: clear to auscultation bilaterally Percussion: percussion normal Cardio Jugular venous distension: no JVD Palpation: normal PMI Rate: regular rate Rhythm: regular rhythm Heart sounds: S1 normal heart sound present and S2 normal heart sound present GI Inspection: Yes normal to inspection Palpation (GI): No hepatosplenomegaly present Skin General skin exam: no rashes or lesions noted Extrem General: Yes no clubbing, cyanosis or edema Assessment and Plan Assessment & Plan (1) Hyperlipidemia: Code(s): E78.5 - Hyperlipidemia, unspecified Plan: restart rx Orders: Orders Lipid Panel Today Z13.220 - Encounter for screening for lipoid disorders Coding Level of Care Code Est Pt Level 3 (25112) Diagnoses Hyperlipidemia E78.5
[2024-02-25 13:25] VITALS: BP 110/64; PULSE 94; O2SAT 95; BMI 25.7
== END 2024-02-25 13:43 | disposition home or self-care (01) ==
PROVIDERS: PCP Internal Medicine; Visit Provider Internal Medicine
DX: E78.5 Hyperlipidemia, unspecified (principal)
CPT/HCPCS: 99213

== ENCOUNTER 2024-08-14 10:45 | Outpatient (REF) | payer MEDICARE, SELFPAY ==
--- NOTE | ~2024-08-14 | MM_ITS ---
EXAMINATION: MM SCREENING DIGITAL BREAST TOMOSYNTHESIS, BILATERAL CLINICAL INFORMATION: Screening. Asymptomatic. COMPARISON: Mammography: Comparison is made with available priors TECHNIQUE: Digital breast mammography with tomosynthesis is performed in both the craniocaudal and mediolateral oblique views along with computer-aided detection (CAD). FINDINGS: There are scattered areas of fibroglandular density (ACR BI-RADS breast composition Category b). Left excisional biopsy. There are no significant masses, abnormal calcifications, or other abnormalities. MM/MM tomosynthesis screening BI IMPRESSION: No mammographic evidence of malignancy. ASSESSMENT: BI-RADS BI-RADS 2 - Benign Findings RECOMMENDATION: Routine annual mammography screening. 1 year F/U This examination should not preclude the clinical evaluation of a suspicious palpable abnormality. This patient's information was entered into a reminder system with a target due date for their next mammogram. Electronically signed by: Kerry Merida DO 08/23/2024 09:01 AM CRISTOPHER
== END 2024-08-14 10:46 | disposition home or self-care (01) ==
LOC: HO.MAMMO 10:45
PROVIDERS: PCP Internal Medicine; Visit Provider Internal Medicine
DX: Z12.31 Encounter for screening mammogram for malignant neoplasm of breast (principal)
CPT/HCPCS: 77063; 77067

== ENCOUNTER → 2024-08-14 11:15 | Outpatient (BNV) | payer MEDICARE, SELFPAY | PROVIDERS: PCP Internal Medicine; Visit Provider Internal Medicine | DX: Z12.31 Encounter for screening mammogram for malignant neoplasm of breast (principal) | CPT/HCPCS: 77063; 77067 ==

== ENCOUNTER 2024-08-28 07:50 | Outpatient (REF) | payer MEDICARE, SELFPAY ==
[2024-08-28 09:13] LABS: Cholesterol 145 mg/dL (<200); HDL Cholesterol 79 mg/dL (>40); LDL Cholesterol Calculated 58 mg/dL (<100); Triglycerides 44 mg/dL (<150)
== END 2024-08-28 07:51 | disposition home or self-care (01) ==
LOC: HO.LAB 07:50
PROVIDERS: PCP Internal Medicine; Visit Provider Internal Medicine
DX: Z13.220 Encounter for screening for lipoid disorders (principal)
CPT/HCPCS: 36415; 80061

== ENCOUNTER 2024-09-03 10:44 | Outpatient (AMB) | payer MEDICARE, SELFPAY ==
--- NOTE | 2024-09-03 10:56 | MHC.PC.OV ---
Vital Signs 09/03/24 10:57 Height 5 ft 4 in Weight 149 lb 8 oz BMI 25.7 BP 130/62 Blood Pressure Location Lt brachial Position Sitting Pulse 75 Pulse Source Pulse Oximeter Temp 97.1 F Temp Source Skin Pulse Oximetry (%) 95 Oxygen Delivery Method Room Air Intake Visit Reasons: 6mth f/u Intake Note: Patient is here to follow up on Asthma, HLD. 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 Supervisor [employer]: Not Required per policy Accompanied by: Self / Same As Patient Allergies latex [LATEX] Allergy (Intermediate, Verified 09/03/24 10:57) SWELLING BACTRIM Allergy (Mild, Uncoded 09/03/24 10:57) Rash Medication List - Last Reconciled 09/03/24 by Dev Floyd MD acetaminophen ER (Tylenol 8 Hour) 650 mg PO Q12H albuterol sulfate 90 mcg/actuation 2 puffs inhalation Q4-6H amitriptyline 50 mg PO BEDTIME ezetimibe 10 mg PO DAILY levothyroxine 75 mcg PO DAILY naproxen (Naprosyn) 500 mg PO BID PRN omeprazole 20 mg PO DAILY rosuvastatin 10 mg PO DAILY Tobacco use date assessed: 09/03/24 Fall risk assessment: No Falls in past year Last assessed Fall Risk: 09/03/24 Dental Screening Dental Screen Date: 09/03/24 Did you have a dental visit in the last 12 months?: No Did you have a dental problem in the last 6 months where you did not have access to dental care?: No Was dental information given to patient?: No (Dentures) HPI 6mth f/u HPI Details hypothyroidism and hyperlipidemia on rx; doing well PFSH Medical History Hypothyroidism Hyperlipidemia Surgical History History of appendectomy History of tonsillectomy History of hysterectomy Social History Housing: Condominium Alcohol intake: never Patient Tobacco Use Status: Never used Tobacco e-Cigarette/Vaping Use: Never Used Second Hand Smoke Exposure: No service: No Current occupational status: employed Cognitive needs: No Hearing needs: No Vision needs: No Questionnaire PHQ-9 Over the last 2 weeks, how often have you been bothered by any of the following problems? 1. Little interest or pleasure in doing things: not at all 2. Feeling down, depressed, or hopeless: not at all 3. Trouble falling or staying asleep, or sleeping too much: not at all 4. Feeling tired or having little energy: not at all 5. Poor appetite or overeating: not at all 6. Feeling bad about yourself - or that you are a failure or have let yourself or your family down: not at all 7. Trouble concentrating on things, such as reading the newspaper or watching television: not at all 8. Moving or speaking so slowly that other people could have noticed. Or the opposite - being so fidgety or restless that you have been moving around a lot more than usual: not at all 9. Thoughts that you would be better off or of hurting yourself in some way: not at all Total score: 0 Depression Screening Interpretation: Negative Depression Screening Done: Yes Source: Developed by Drs. Angel Clarke, Alicia Mobley, Sukhi Schmitt and colleagues, with an educational radha from [employer]. Thrive Questionnaire Date Thrive assessed: 09/03/24 I am a: Patient What is your living situation today?: I have a steady place to live Within the past 12 months, did the food you bought not last and you didn't have the money to get more?: Never true Within the past 12 months, did you worry whether your food would run out before you got money to buy more?: Never true Do you have trouble paying for medicines?: No Do you have trouble getting transportation to medical appointments?: No Do you have trouble paying your heating and electricity bill?: No Do you have trouble taking care of your child, family member or friend?: No Do you have trouble with day-to-day activities such as bathing, preparing meals, shopping, managing finances, etc.?: No Are you currently unemployed and looking for a job?: No Are you interested in more education?: No Please select the resources that you would like help with: None Currently or been in a relationship where the following occur: No concerns reported THRIVE Score: 0 AUDIT C Alcohol Use Questionnaire (AUDIT-C) 1. How often do you have a drink containing alcohol?: Never Total Score: 0 CURTIS-7 AMB Questionnaire CURTIS-7 Date CURTIS - 7 assessed: 09/03/24 Feeling nervous, anxious, or on edge: 0 = Not at all Not being able to stop or control worryin = Not at all Worrying too much about different things: 0 = Not at all Trouble relaxin = Not at all Being so restless that it is hard to sit still: 0 = Not at all Becoming easily annoyed or irritable: 0 = Not at all Feeling afraid as if something awful might happen: 0 = Not at all Total CURTIS-7 score (0-4 normal; 5-9 mild; 10-14 moderate; 15-21 severe): 0 Source: Developed by Drs. Angel Clarke, Alicia Mobley, Sukhi Schmitt and colleagues, with an educational radha from [employer]. Review of Systems Const Denies chills, Denies headache(s) and Denies weight loss ENT Denies headache(s) Card Denies chest pain, Denies syncope, Denies irregular heart rhythm and Denies dyspnea Resp Denies chest congestion, Denies cough and Denies dyspnea GI Denies abdominal pain, Denies change in stool character, Denies nausea and Denies vomiting Musc Denies deformity and Denies joint swelling Neuro Denies syncope and Denies headache(s) Physical exam (Primary Care) Vital Signs: Last Vital Signs Temp 97.1 F 09/03/24 10:57 Pulse 75 09/03/24 10:57 BP 130/62 09/03/24 10:57 Pulse Ox 95 09/03/24 10:57 Oxygen Delivery Method Room Air 09/03/24 10:57 BMI result Body Mass Index 25.7 Tobacco/Smoking Status: Tobacco use Status Tobacco use date assessed 09/03/24 09/03/24 11:01 Patient Tobacco Use Status Never used Tobacco 09/03/24 11:01 e-Cigarette/Vaping Use Never Used 09/03/24 11:01 PHQ-9: PHQ-9 Score PHQ-9: Total score 0 09/03/24 11:01 Depression Screening Interpretation: Negative Thrive Assessment: Date of Thrive Assessment Date Thrive assessed 09/03/24 09/03/24 11:01 Currently or been in a relationship where the following occur: No concerns reported Const General: cooperative, comfortable, no acute distress and alert Neck Neck: Yes no lymphadenopathy Thyroid: Thyroid normal Resp Effort & Inspection: normal respiratory effort Auscultation: clear to auscultation bilaterally Percussion: percussion normal Cardio Jugular venous distension: no JVD Palpation: normal PMI Rate: regular rate Rhythm: regular rhythm Heart sounds: S1 normal heart sound present and S2 normal heart sound present GI Inspection: Yes normal to inspection Palpation (GI): No hepatosplenomegaly present Skin General skin exam: no rashes or lesions noted Extrem General: Yes no clubbing, cyanosis or edema Coding Level of Care Code Est Pt Level 3 (77440) Diagnoses Hypothyroidism E03.9 Assessment & Plan Assessment & Plan (1) Hypothyroidism: Code(s): E03.9 - Hypothyroidism, unspecified Category: Medical Plan: stable; same rx
[2024-09-03 10:57] VITALS: BP 130/62; PULSE 75; TEMP 36.2; O2SAT 95; BMI 25.7
== END 2024-09-03 11:11 | disposition home or self-care (01) ==
PROVIDERS: PCP Internal Medicine; Visit Provider Internal Medicine
DX: E03.9 Hypothyroidism, unspecified (principal)

== ENCOUNTER → 2024-09-03 10:44 | Outpatient (BNVA) | payer MEDICARE, SELFPAY | PROVIDERS: PCP Internal Medicine; Visit Provider Internal Medicine | DX: E03.9 Hypothyroidism, unspecified (principal) | CPT/HCPCS: 99212 ==

== ENCOUNTER 2025-02-24 08:21 | Outpatient (AMB) | payer MEDICARE, SELFPAY ==
--- OUTSIDE RECORDS SUMMARY | 2025-02-24 08:25 | XMS_ITS | Patient Health Record ---
Author Organization [facility] Address [address] [place] [address] Care Team Providers Care Police Magistrate Name Role Phone Rachel LINN, Thaddeus Primary Care Provider Angel Heaton Unavailable [phone] Allergies Allergen (clinical drug ingredient) Drug/Non Drug Allergy documented on EMR Reaction Allergy Type Onset Date Status Penicillin Unknown Drug Allergy Active Reason For Referral No Information Medications Medication SIG (Take, Route, Frequency, Duration) Notes Start Date End Date Status Levothyroxine Sodium Active Hyoscyamine Sulfate 0.125 Milligram 1-2 tabs po Q 6 hours prn abdominal cramps/discomfort for 30 03/16/2014 Active Omeprazole Active Amitriptyline HCl Ac tive Atorvastatin Calcium Active Bqzhecpaaj-Tpnwvtz-Fgffikhz Active Problems Problem Type SNOMED Code ICD Code Onset Dates Problem Status W/U Status Risk Notes Problem 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 Problem Irritable bowel syndrome (90219229) Irritable bowel syndrome (564.1) Active confirmed Problem Diarrhea (19653632) Diarrhea (787.91) Active confirmed Problem Anemia (656574770) Anemia (285.9) Active confir med Problem Gastroesophageal reflux disease (145275250) GERD (gastroesophag eal reflux disease) (530.81) Active confirmed Problem Iron deficiency anemia (37883771) Iron deficiency anemia (280.9) Active confirmed Problem Iron deficiency anemia (42911539) Anemia, iron deficiency (280.9) Active confirmed Plan Of Treatment Pending Test Test Name Order Date IRON + IBC (FE) 02/01/2013 FERRITIN 02/01/2013 VITAMIN B12 AND FOLATE 02/01/2013 Future Test Test Name Order Date UPPER GI ENDOSCOPY 04/07/2013 COLONOSCOPY 04/07/2013 Insurance Providers Payer Name Payer Address Payer Phone Subscriber Number Group Number Insured Name Patient Relationship to Insured Coverage Start Date Coverage End Date [facility] [address] [facility], [place] [phone] [id number] MAEVE RODAS Self - patient is the insured MEDICARE OF [place] [address] [place] [address] [phone] [id number] ADRIANNA MAEVE Self - patient is the insured Medical (General) History Medical History History ICD Code UPPER ENDOSCOPY IN 08/2010-mo derate sized HH and small area of Clinton's-no dysplasia; bx neg for celiac disease MIGRAINES HYPOTHYROIDISM Denies MT,DM,CVA,renal disease Neg colonoscopy in 06/[address] Dixon [facility] Hyperlipidemia Mild asthma--uses an inhaler prn ? of ischemic colitis in 07/2010 based o n abnormal CT Upper endo in 04/2013--no dysplasia in e Clinton's, HH, no celiac disease Colonoscopy in 04/2013-no spencer yps, nonspecific inflammation--no definitive colitis Surgical History Surgery Date(Month/Year) Benign breast lumps Appy ALEJANDRA with BSO--endometriosis PARTIAL THYROIDECTOMY BLADDER SUSPENSION
[2025-02-24 08:43] VITALS: BP 120/80; PULSE 79; O2SAT 98; BMI 26.8
--- NOTE | 2025-02-24 08:43 | A.OFFPC_ITS ---
Vital Signs 02/24/25 08:43 Height 5 ft 4 in Blood Pressure Location Lt brachial Position Sitting Pulse Source Pulse Oximeter Oxygen Delivery Method Room Air Intake Visit Reasons: awv/sidra Dr Floyd Basket Braider Required: No Accompanied by: Self / Same As Patient Allergies latex (LATEX) Allergy (Intermediate, Verified 02/24/25 08:43) SWELLING BACTRIM Allergy (Mild, Uncoded 02/24/25 08:43) Rash Tobacco use date assessed: 02/24/25 Last assessed Fall Risk: 02/24/25 Dental Screening Dental Screen Date: 02/24/25 [facility] Medical History Hypothyroidism Hyperlipidemia Surgical History History of appendectomy History of tonsillectomy History of hysterectomy Social History Housing: Condominium Alcohol intake: never Patient Tobacco Use Status: Never used Tobacco e-Cigarette/Vaping Use: Never Used Second Hand Smoke Exposure: No service: No Current occupational status: employed Cognitive needs: No Hearing needs: No Vision needs: No Questionnaire PHQ-9 Over the last 2 weeks, how often have you been bothered by any of the following problems? 1. Little interest or pleasure in doing things: not at all 2. Feeling down, depressed, or hopeless: not at all 3. Trouble falling or staying asleep, or sleeping too much: not at all 4. Feeling tired or having little energy: not at all 5. Poor appetite or overeating: not at all 6. Feeling bad about yourself - or that you are a failure or have let yourself or your family down: not at all 7. Trouble concentrating on things, such as reading the newspaper or watching television: not at all 8. Moving or speaking so slowly that other people could have noticed. Or the opposite - being so fidgety or restless that you have been moving around a lot more than usual: not at all 9. Thoughts that you would be better off or of hurting yourself in some way: not at all Total score: 0 Source: Developed by Drs. Angel Clarke, Alicia B.WSukhi Moctezuma and colleagues, with an educational radha from [employer]. Thrive Questionnaire Date Thrive assessed: 02/24/25 I am a: Patient What is your living situation today?: I have a steady place to live Within the past 12 months, did the food you bought not last and you didn't have the money to get more?: Never true Within the past 12 months, did you worry whether your food would run out before you got money to buy more?: Never true Do you have trouble paying for medicines?: No Do you have trouble getting transportation to medical appointments?: No Do you have trouble paying your heating and electricity bill?: No Do you have trouble taking care of your child, family member or friend?: No Do you have trouble with day-to-day activities such as bathing, preparing meals, shopping, managing finances, etc.?: No Are you currently unemployed and looking for a job?: Yes Are you interested in more education?: No Please select the resources that you would like help with: None Currently or been in a relationship where the following occur: No concerns reported THRIVE Score: 0 AUDIT C Alcohol Use Questionnaire (AUDIT-C) 1. How often do you have a drink containing alcohol?: Never 3. How often do you have six or more drinks on one occasion?: Never Total Score: 0 CURTIS-7 AMB Questionnaire CURTIS-7 Date CURTIS - 7 assessed: 02/24/25 Feeling nervous, anxious, or on edge: 0 = Not at all Not being able to stop or control worryin = Not at all Worrying too much about different things: 0 = Not at all Trouble relaxin = Not at all Being so restless that it is hard to sit still: 0 = Not at all Becoming easily annoyed or irritable: 0 = Not at all Feeling afraid as if something awful might happen: 0 = Not at all Total CURTIS-7 score (0-4 normal; 5-9 mild; 10-14 moderate; 15-21 severe): 0 Source: Developed by Drs. Angel Clarke, Sukhi Ceballos and colleagues, with an educational radha from [employer]. Physical exam (Primary Care) Tobacco/Smoking Status: Tobacco use Status Tobacco use date assessed 09/03/24 09/03/24 11:01 Patient Tobacco Use Status Never used Tobacco 09/03/24 11:01 e-Cigarette/Vaping Use Never Used 09/03/24 11:01 Thrive Assessment: Date of Thrive Assessment Date Thrive assessed 09/03/24 09/03/24 11:01 Currently or been in a relationship where the following occur: No concerns reported Coding
--- NOTE | 2025-02-24 08:43 | A.OFFVIS_ITS ---
Intake Vital Signs 02/24/25 08:43 Height 5 ft 4 in Weight 156 lb BMI 26.8 BP 120/80 Blood Pressure Location Lt brachial Position Sitting Pulse 79 Pulse Source Pulse Oximeter Pulse Oximetry (%) 98 Oxygen Delivery Method Room Air Intake Visit Reasons: awv/sidra Dr Flyod Allergies latex (LATEX) Allergy (Intermediate, Verified 02/24/25 08:54) SWELLING BACTRIM Allergy (Mild, Uncoded 02/24/25 08:54) Rash Medication List - Last Reconciled 02/24/25 by ZOHREH Montalvo acetaminophen ER (Tylenol 8 Hour) 650 mg PO Q12H albuterol sulfate 90 mcg/actuation 2 puffs inhalation Q4-6H amitriptyline 50 mg PO BEDTIME ezetimibe 10 mg PO DAILY levothyroxine 75 mcg PO DAILY naproxen (Naprosyn) 500 mg PO BID PRN omeprazole 20 mg PO DAILY rosuvastatin 10 mg PO DAILY HPI awv/sidra Dr Floyd HPI Details Dentist: up to date. Has most of her teeth pulled and planning on getting others removed Eye: up to date Snellen: Right: Left: Corrected vision:no STI screening: Colonoscopy:aged out Pap Smer:aged out PHQ-9: Flu: up to date COVID:x3 Tdap: declines Diet:regular Exercise:walks frequently [place] of care reviewed with patient. Reports that she has a living will and her is her HCP and he knows her wishes. No paperwork on file. The forms were given to the patient to fill out and return as soon as she can. HPI Comments History of Present Illness Details reviewed past medical history- yes reviewed surgical / hospitalization history- yes reviewed current medications- yes reviewed family history- yes home safety throw rugs? no grab bars? no raised toilet seat? no working smoke detectors? yes activities of daily living difficulty bathing or showering? no difficulty dressing? no difficulty using the toilet? no difficulty getting in and out of bed? no difficulty walking?no receives help from other person's with any of the above tasks? no instrumental activities of daily living uses telephone - yes gets to place out of walking distance-yes go shopping for groceries- yes repairs own meals- yes does own minor home maintenance- yes does own laundry- yes does own housework-yes manages own money- yes with her currently takes medication- yes end of life planning discussed advanced directives- yes advanced directives on file? no discussed wishes expressed in advanced directives.yes fall risk have you had any falls with injuries in the past year? yes-about a week ago, minor skin tear to right forearm have you had 2 or more falls in the past year? no fall risk assessment: yes PFSH Medical History Hypothyroidism Hyperlipidemia Surgical History History of appendectomy History of tonsillectomy History of hysterectomy Social History Housing: Condominium Alcohol intake: never Patient Tobacco Use Status: Never used Tobacco e-Cigarette/Vaping Use: Never Used Second Hand Smoke Exposure: No service: No Current occupational status: employed Cognitive needs: No Hearing needs: No Vision needs: No Questionnaire Medicare Wellness Checkup What is your age?: 82 or older What gender do you identify with?: female During the past 4 weeks, how much have you been bothered by emotional problems such as feeling anxious, depressed, irritable, sad or downhearted, and blue?: slightly During the past 4 weeks, has your physical & emotional health limited your social activities with family, friends, neighbors, or groups?: not at all During the past 4 weeks, how much bodily pain have you generally had?: very mild pain During the past 4 weeks, was someone available to help you if you needed & wanted help?: yes, as much as I wanted During the past 4 weeks, what was the hardest physical activity you could do for at least 2 minutes?: heavy Can you get to places out of walking distance without help? (For eg., can you travel alone on buses, taxis or drive your car?): Yes Can you go shopping for groceries or clothes without someone's help?: Yes Can you prepare your own meals?: Yes Can you do your housework without help?: No Because of any health problems, do you need the help of another person with your personal care needs such as eating, bathing, dressing or getting around the house?: No Can you handle your own money without help?: Yes During the past 4 weeks, how would you rate your health in general?: very good During the past 4 weeks how have things been going for you?: pretty well Are you having difficulties driving your car?: no Do you always fasten your seat belt when you are in a car?: yes, usually During past 4 weeks, have you been bothered by the following: never: Falling or dizzy when standing up, Sexual problems?, Trouble eating well?, Teeth or denture problems? and Problems using the telephone? and sometimes: Tiredness or fatigue? Have you fallen 2 or more times in the past year?: No Are you afraid of falling?: Yes Are you a smoker?: no During the past 4 weeks, how many drinks of wine, beer, or other alcoholic beverages did you have?: no alcohol at all Do you exercise for about 20 minutes 3 or more times a week?: yes, all the time Have you been given information to help with the following?: yes: Hazards in your house that might hurt you? and yes: Keeping track of your medications? How often do you have trouble taking medicines the way you have been told to take them?: I always take medicine as prescribed How confident are you that you can control & manage most of your health problems?: very confident What is your race?: White Mini Mental State Exam (MMSE) Orientation What is the (year) (season) (date) (day) (month)?: year, season, date, day and month Where are we (state) (county) (town or city) (hospital) (floor)?: state, county, town or city, hospital/clinic and floor Score Score: 10 Activity of Daily Living Bathing - sponge bath, tub bath or shower: receives no assistance (gets in/out by self, if usual bathing means Dressing - getting clothes from closets & drawers, including inner/outer garments & fasteners.: gets clothes & gets completely dressed without help Toileting - going to the 'toilet room' for urine/bowel elimination & cleaning self/arranging clothes: goes to toilet room, cleans self, arranges clothes without help Transfer: moves in & out of bed and chair without help (may use support object) Continence: has occasional 'accidents' Feeding: feeds self without help Total Score: 0 Information obtained from: patient Using telephone: independent Traveling: independent Preparing meals: independent Housework: independent Taking medicine: independent Managing money: independent (Along with her ) PHQ-9 Over the last 2 weeks, how often have you been bothered by any of the following problems? 1. Little interest or pleasure in doing things: not at all 2. Feeling down, depressed, or hopeless: not at all 3. Trouble falling or staying asleep, or sleeping too much: not at all 4. Feeling tired or having little energy: not at all 5. Poor appetite or overeating: not at all 6. Feeling bad about yourself - or that you are a failure or have let yourself or your family down: not at all 7. Trouble concentrating on things, such as reading the newspaper or watching television: not at all 8. Moving or speaking so slowly that other people could have noticed. Or the opposite - being so fidgety or restless that you have been moving around a lot more than usual: not at all 9. Thoughts that you would be better off or of hurting yourself in some way: not at all Total score: 0 Depression Screening Interpretation: Negative Depression Screening Done: Yes Source: Developed by Drs. Angel Clarke, Alicia Mobley, Sukhi Schmitt and colleagues, with an educational radha from [employer]. Review of Systems Const Denies headache(s) Eyes Denies loss of vision ENT Denies vertigo, Denies dizziness, Denies headache(s) and Denies sore throat Card Denies chest pain, Denies leg edema and Denies lightheadedness Resp Denies cough, Denies hemoptysis and Denies wheezing GI Denies abdominal pain, Denies melena, Denies constipation, Denies diarrhea and Denies vomiting Denies urinary frequency, Denies dysuria and Denies urinary urgency Musc Denies arthralgias, Denies joint swelling, Denies numbness and Denies tingling Neuro Denies behavioral changes, Denies vertigo, Denies dizziness, Denies headache(s), Denies loss of vision, Denies memory loss, Denies numbness and Denies tingling Psych Denies anxiety, Denies behavioral changes, Denies depression, Denies memory loss and Denies panic attacks Jim/Lymph Denies easy bleeding and Denies easy bruising Aller/Immun Denies wheezing Physical Exam Vital Signs: Last Vital Signs Pulse 79 02/24/25 08:43 BP 120/80 02/24/25 08:43 Pulse Ox 98 02/24/25 08:43 Oxygen Delivery Method Room Air 02/24/25 08:43 BMI result Body Mass Index 26.8 Const Other: IPPE/AWV: Balance Romberg Yes . Tandem walk Yes. Walk and Turn Yes . Rise from sit to stand Yes . Vision Corrective lens No Vision screen pass Hearing Whisper test pass . Urinary incont. no. EKG Not clinically necessary. Assessment & Plan Assessment & Plan (1) Medicare annual wellness visit, subsequent: Code(s): Z00.00 - Encounter for general adult medical examination without abnormal findings Plan: Preventative guidelines reviewed with the patient. No recent labs. [place] of care reviewed with the patient. Reports that she does not see in his specialist at this time, except her eye doctor. She had a mammogram last year and another 1 scheduled for next year. (2) Hyperlipidemia: Code(s): E78.5 - Hyperlipidemia, unspecified Qualifiers: Hyperlipidemia type: unspecified Qualified Code(s): E78.5 - Hyperlipidemia, unspecified Plan: Triglycerides 44, total cholesterol 145, LDL 58, HDL 79 Reinforced low-cholesterol diet and activity as tolerated Continue rosuvastatin 10 mg daily and ezetimibe 10 mg daily Recheck lipid panel in 3 months (3) Asthma: Code(s): J45.909 - Unspecified asthma, uncomplicated Qualifiers: Asthma complication type: unspecified Asthma persistence: unspecified Asthma severity: unspecified severity Qualified Code(s): J45.909 - Unspecified asthma, uncomplicated Plan: Stable. Has not used rescue inhaler for a while. Continue albuterol sulfate 90 mcg/actuation 2 puffs inhalation Q 4-6 H PRN. (4) Hypothyroidism: Code(s): E03.9 - Hypothyroidism, unspecified Qualifiers: Hypothyroidism type: unspecified Qualified Code(s): E03.9 - Hypothyroidism, unspecified Plan: Euthyroid on 3 consecutive labs Continue levothyroxine 75 mcg daily Labs ordered, we will advise Orders: Orders Comprehensive [place]. Panel Fast Today E03.9 - Hypothyroidism, unspecified, E78.5 - Hyperlipidemia, unspecified, I83.12 - Varicose veins of left lower extremity with inflammation, I83.813 - Varicose veins of bilateral lower extremities with pain, J45.909 - Unspecified asthma, uncomplicated, Z00.00 - Encounter for general adult medical examination without abnormal findings Lipid Panel Today E03.9 - Hypothyroidism, unspecified, E78.5 - Hyperlipidemia, unspecified, I83.12 - Varicose veins of left lower extremity with inflammation, I83.813 - Varicose veins of bilateral lower extremities with pain, J45.909 - Unspecified asthma, uncomplicated, Z00.00 - Encounter for general adult medical examination without abnormal findings Vitamin D 25-OH Total Today E03.9 - Hypothyroidism, unspecified, E78.5 - Hyperlipidemia, unspecified, I83.12 - Varicose veins of left lower extremity with inflammation, I83.813 - Varicose veins of bilateral lower extremities with pain, J45.909 - Unspecified asthma, uncomplicated, Z00.00 - Encounter for general adult medical examination without abnormal findings Complete Blood Count Auto Diff Today E03.9 - Hypothyroidism, unspecified, E78.5 - Hyperlipidemia, unspecified, I83.12 - Varicose veins of left lower extremity with inflammation, I83.813 - Varicose veins of bilateral lower extremities with pain, J45.909 - Unspecified asthma, uncomplicated, Z00.00 - Encounter for general adult medical examination without abnormal findings TSH reflex Free T4 Today E03.9 - Hypothyroidism, unspecified, E78.5 - Hyperlipidemia, unspecified, I83.12 - Varicose veins of left lower extremity with inflammation, I83.813 - Varicose veins of bilateral lower extremities with pain, J45.909 - Unspecified asthma, uncomplicated, Z00.00 - Encounter for general adult medical examination without abnormal findings UA CC w/rflx Micro + Cult Today E03.9 - Hypothyroidism, unspecified, E78.5 - Hyperlipidemia, unspecified, I83.12 - Varicose veins of left lower extremity with inflammation, I83.813 - Varicose veins of bilateral lower extremities with pain, J45.909 - Unspecified asthma, uncomplicated, Z00.00 - Encounter for general adult medical examination without abnormal findings Free T4 (Free Thyroxine) Today E03.9 - Hypothyroidism, unspecified, E78.5 - Hyperlipidemia, unspecified, I83.12 - Varicose veins of left lower extremity with inflammation, I83.813 - Varicose veins of bilateral lower extremities with pain, J45.909 - Unspecified asthma, uncomplicated, Z00.00 - Encounter for general adult medical examination without abnormal findings Quality Reporting (2019) Depression/Bipolar (159/160/161/177) PHQ-9: Total score: 0 Coding Level of Care Code Medicare Subsequent (G0439) Diagnoses Medicare annual wellness visit, subsequent Z00.00 Hyperlipidemia, unspecified hyperlipidemia type E78.5 Hyperlipidemia type: unspecified Asthma, unspecified asthma severity, unspecified whether complicated, unspecified whether persistent J45.909 Asthma complication type: unspecified Asthma persistence: unspecified Asthma severity: unspecified severity Hypothyroidism, unspecified type E03.9 Hypothyroidism type: unspecified Time Spent (min) 37
--- NOTE | 2025-02-24 08:50 | AM.OFFVISMDC ---
Intake Vital Signs 02/24/25 08:43 Height 5 ft 4 in Weight 156 lb BMI 26.8 BP 120/80 Blood Pressure Location Lt brachial Position Sitting Pulse 79 Pulse Source Pulse Oximeter Pulse Oximetry (%) 98 Oxygen Delivery Method Room Air Intake Visit Reasons: awv/sidra Dr Floyd Boat Wrapper Required: No Accompanied by: Self / Same As Patient Allergies latex (LATEX) Allergy (Intermediate, Verified 02/24/25 08:54) SWELLING BACTRIM Allergy (Mild, Uncoded 02/24/25 08:54) Rash Medication List - Last Reconciled 02/24/25 by ZOHREH Montalvo acetaminophen ER (Tylenol 8 Hour) 650 mg PO Q12H albuterol sulfate 90 mcg/actuation 2 puffs inhalation Q4-6H amitriptyline 50 mg PO BEDTIME ezetimibe 10 mg PO DAILY levothyroxine 75 mcg PO DAILY naproxen (Naprosyn) 500 mg PO BID PRN omeprazole 20 mg PO DAILY rosuvastatin 10 mg PO DAILY Do you need a note to return to daycare/school/sports/work: No [facility] Medical History Hypothyroidism Hyperlipidemia Surgical History History of appendectomy History of tonsillectomy History of hysterectomy Social History Housing: Condominium Alcohol intake: never Patient Tobacco Use Status: Never used Tobacco e-Cigarette/Vaping Use: Never Used Second Hand Smoke Exposure: No service: No Current occupational status: employed Cognitive needs: No Hearing needs: No Vision needs: No Questionnaire Medicare Wellness Checkup What is your age?: 82 or older What gender do you identify with?: female During the past 4 weeks, how much have you been bothered by emotional problems such as feeling anxious, depressed, irritable, sad or downhearted, and blue?: slightly During the past 4 weeks, has your physical & emotional health limited your social activities with family, friends, neighbors, or groups?: not at all During the past 4 weeks, how much bodily pain have you generally had?: very mild pain During the past 4 weeks, was someone available to help you if you needed & wanted help?: yes, as much as I wanted During the past 4 weeks, what was the hardest physical activity you could do for at least 2 minutes?: heavy Can you get to places out of walking distance without help? (For eg., can you travel alone on buses, taxis or drive your car?): No Can you go shopping for groceries or clothes without someone's help?: No Can you prepare your own meals?: No Can you do your housework without help?: No Because of any health problems, do you need the help of another person with your personal care needs such as eating, bathing, dressing or getting around the house?: No Can you handle your own money without help?: Yes During the past 4 weeks how have things been going for you?: pretty well Are you having difficulties driving your car?: no Do you always fasten your seat belt when you are in a car?: yes, usually During past 4 weeks, have you been bothered by the following: never: Falling or dizzy when standing up, Sexual problems?, Trouble eating well?, Teeth or denture problems? and Problems using the telephone? and sometimes: Tiredness or fatigue? Have you fallen 2 or more times in the past year?: No Are you afraid of falling?: No Are you a smoker?: no During the past 4 weeks, how many drinks of wine, beer, or other alcoholic beverages did you have?: no alcohol at all Do you exercise for about 20 minutes 3 or more times a week?: yes, most of the time Have you been given information to help with the following?: no: Hazards in your house that might hurt you? and no: Keeping track of your medications? How often do you have trouble taking medicines the way you have been told to take them?: I always take medicine as prescribed How confident are you that you can control & manage most of your health problems?: very confident What is your race?: White PHQ-9 Over the last 2 weeks, how often have you been bothered by any of the following problems? 1. Little interest or pleasure in doing things: not at all 2. Feeling down, depressed, or hopeless: not at all 3. Trouble falling or staying asleep, or sleeping too much: not at all 4. Feeling tired or having little energy: not at all 5. Poor appetite or overeating: not at all 6. Feeling bad about yourself - or that you are a failure or have let yourself or your family down: not at all 7. Trouble concentrating on things, such as reading the newspaper or watching television: not at all 8. Moving or speaking so slowly that other people could have noticed. Or the opposite - being so fidgety or restless that you have been moving around a lot more than usual: not at all 9. Thoughts that you would be better off or of hurting yourself in some way: not at all Total score: 0 Source: Developed by Drs. Angel Clarke, Alicia Mobley, Sukhi Schmitt and colleagues, with an educational radha from [employer]. PHQ-2/PHQ-9 PHQ-2 Over the last 2 weeks, how often have you been bothered by any of the following problems? 1. Little interest or pleasure in doing things: not at all 2. Feeling down, depressed, or hopeless: not at all Total score: 0 If score is 3 or greater, continue 3. Trouble falling or staying asleep, or sleeping too much: not at all 4. Feeling tired or having little energy: not at all 5. Poor appetite or overeating: not at all 6. Feeling bad about yourself - or that you are a failure or have let yourself or your family down: not at all 7. Trouble concentrating on things, such as reading the newspaper or watching television: not at all 8. Moving or speaking so slowly that other people could have noticed. Or the opposite - being so fidgety or restless that you have been moving around a lot more than usual: not at all 9. Thoughts that you would be better off or of hurting yourself in some way: not at all Total score: 0 0-4 None-Minimal, 5-9 Mild, 10-14 Moderate, 15-19 Moderately Severe, 20-27 Severe Source: Developed by Drs. Angel Clarke, Alicia Mobley, Sukhi Schmitt and colleagues, with an educational radha from [employer]. Thrive Questionnaire Date Thrive assessed: 02/24/25 I am a: Patient What is your living situation today?: I have a steady place to live Within the past 12 months, did the food you bought not last and you didn't have the money to get more?: Never true Within the past 12 months, did you worry whether your food would run out before you got money to buy more?: Never true Do you have trouble paying for medicines?: No Do you have trouble getting transportation to medical appointments?: No Do you have trouble paying your heating and electricity bill?: No Do you have trouble taking care of your child, family member or friend?: No Do you have trouble with day-to-day activities such as bathing, preparing meals, shopping, managing finances, etc.?: No Are you currently unemployed and looking for a job?: Yes Are you interested in more education?: No Please select the resources that you would like help with: None Currently or been in a relationship where the following occur: No concerns reported THRIVE Score: 0 CURTIS-7 AMB Questionnaire CURTIS-7 Date CURTIS - 7 assessed: 02/24/25 Feeling nervous, anxious, or on edge: 0 = Not at all Not being able to stop or control worryin = Not at all Worrying too much about different things: 0 = Not at all Trouble relaxin = Not at all Being so restless that it is hard to sit still: 0 = Not at all Becoming easily annoyed or irritable: 0 = Not at all Feeling afraid as if something awful might happen: 0 = Not at all Total CURTIS-7 score (0-4 normal; 5-9 mild; 10-14 moderate; 15-21 severe): 0 Source: Developed by Drs. Angel Clarke, Alicia Mobley, Sukhi Schmitt and colleagues, with an educational radha from [employer]. Physical Exam Vital Signs: Oxygen Delivery Method Room Air 02/24/25 08:43 BMI result Body Mass Index 26.8 Assessment & Plan Assessment & Plan (1) Medicare annual wellness visit, subsequent: Code(s): Z00.00 - Encounter for general adult medical examination without abnormal findings (2) Hyperlipidemia: Code(s): E78.5 - Hyperlipidemia, unspecified (3) Varicose veins of bilateral lower extremities with pain: Code(s): I83.813 - Varicose veins of bilateral lower extremities with pain (4) Asthma: Code(s): J45.909 - Unspecified asthma, uncomplicated (5) Hypothyroidism: Code(s): E03.9 - Hypothyroidism, unspecified Quality Reporting (2019) Depression/Bipolar (159/160/161/177) PHQ-9: Total score: 0 Coding Diagnoses Medicare annual wellness visit, subsequent Z00.00 Hyperlipidemia E78.5 Varicose veins of bilateral lower extremities with pain I83.813 Asthma J45.909 Hypothyroidism E03.9
== END 2025-02-24 09:20 | disposition home or self-care (01) ==
DX: Z00.00 Encounter for general adult medical examination without abnormal findings (principal); E78.5 Hyperlipidemia, unspecified; J45.909 Unspecified asthma, uncomplicated; E03.9 Hypothyroidism, unspecified

== ENCOUNTER 2025-02-25 06:06 | Outpatient (REF) | payer MEDICARE, SELFPAY ==
--- OUTSIDE RECORDS SUMMARY | 2025-02-25 06:09 | XMS_ITS | Patient Health Record ---
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 Problem Irritable bowel syndrome (33472771) Irritable bowel syndrome (564.1) Active confirmed Problem Diarrhea (76516728) Diarrhea (787.91) Active confirmed Problem Anemia (616160043) Anemia (285.9) Active confir med Problem Gastroesophageal reflux disease (117766224) GERD (gastroesophag eal reflux disease) (530.81) Active confirmed Problem Iron deficiency anemia (44833868) Iron deficiency anemia (280.9) Active confirmed Problem Iron deficiency anemia (33610864) Anemia, iron deficiency (280.9) Active confirmed Plan Of Treatment Pending Test Test Name Order Date IRON + IBC (FE) 02/01/2013 FERRITIN 02/01/2013 VITAMIN B12 AND FOLATE 02/01/2013 Future Test Test Name Order Date UPPER GI ENDOSCOPY 04/07/2013 COLONOSCOPY 04/07/2013 Insurance Providers Payer Name Payer Address Payer Phone Subscriber Number Group Number Insured Name Patient Relationship to Insured Coverage Start Date Coverage End Date [facility] [facility] [place] [phone] [id number] MAEVE RODAS Self - patient is the insured MEDICARE OF [place] [address] [place] [address] [phone] [id number] ADRIANNA MAEVE Self - patient is the insured Medical (General) History Medical History History ICD Code UPPER ENDOSCOPY IN 08/2010-mo derate sized HH and small area of Clinton's-no dysplasia; bx neg for celiac disease MIGRAINES HYPOTHYROIDISM Denies OR,DM,CVA,renal disease Neg colonoscopy in 06/[address] [facility] Hyperlipidemia Mild asthma--uses an inhaler prn ? of ischemic colitis in 07/2010 based o n abnormal CT Upper endo in 04/2013--no dysplasia in e Clinton's, HH, no celiac disease Colonoscopy in 04/2013-no spencer yps, nonspecific inflammation--no definitive colitis Surgical History Surgery Date(Month/Year) Benign breast lumps Appy ALEJANDRA with BSO--endometriosis PARTIAL THYROIDECTOMY BLADDER SUSPENSION
[2025-02-25 06:24] LABS: MANUAL DIFF FLAG NO
[2025-02-25 07:35] LABS: Hematocrit 37.1 % (37.0-47.0); Hemoglobin 11.8 g/dl (12.0-16.0); Imm Gran Abs Auto 0.01 X10*3/uL (0.00-0.03); Imm Gran Pct Auto 0.3 % (0.0-0.4); Lymphocytes Absolute Auto 1.3 X10*3/uL (1.2-4.9); Mean Corpuscular HGB Conc 31.8 g/dl (31.0-35.0); Mean Corpuscular Hemoglobin 28.6 pg (27.0-33.0); Mean Corpuscular Volume 89.8 fL (80.0-98.0); NRBC Abs Auto 0.000 X10*3/uL (0.0-0.012); NRBC Pct Auto 0.0 /100WBC (0.0-0.2); Platelet Count 238 X10*3/uL (160-400); Red Blood Count 4.13 X10*6/uL (4.20-5.50); White Blood Count 3.9 X10*3/uL (4.8-10.8)
[2025-02-25 08:09] LABS: Alanine Aminotransferase 9 U/L (0-31); Albumin Level 3.9 g/dL (3.5-5.0); Alkaline Phosphatase 90 U/L (39-117); Anion Gap 11 (12-20); Aspartate Amino Transferase 21 U/L (5-31); Blood Urea Nitrogen 8 mg/dL (9-16); Calcium 8.2 mg/dL (8.4-10.2); Carbon Dioxide 27 mmol/L (22-29); Chloride 109 mmol/L (96-108); Cholesterol 129 mg/dL (<200); Estimated Glomerular Filt Rate > 60; HDL Cholesterol 71 mg/dL (>40); Potassium 4.1 mmol/L (3.3-5.1); Sodium 143 mmol/L (135-145); Total Protein 6.4 g/dL (6.5-8.0); Triglycerides 43 mg/dL (<150)
[2025-02-25 08:33] LABS: Free T4 (Free Thyroxine) 0.94 ng/dL (0.71-1.85)
[2025-02-25 11:53] LABS: Appearance Urine Clear; Glucose Urine UA Negative (Negative); PH 7.0 (5.0-9.0); Specific Gravity - Urine 1.020 (1.005-1.025); UMIC TRIGGER UACC YES
[2025-02-25 12:33] LABS: UACC Culture Trigger YES
== END 2025-02-25 06:07 | disposition home or self-care (01) ==
LOC: HO.LAB 06:06
DX: Z00.00 Encounter for general adult medical examination without abnormal findings (principal); I83.813 Varicose veins of bilateral lower extremities with pain; I83.12 Varicose veins of left lower extremity with inflammation; E78.5 Hyperlipidemia, unspecified; E03.9 Hypothyroidism, unspecified; J45.909 Unspecified asthma, uncomplicated
CPT/HCPCS: 36415; 80053; 80061; 81001; 81003; 82306; 84439; 84443; 85025; 87086

== ENCOUNTER 2025-04-08 13:59 | Emergency (ER) | payer MEDICARE, SELFPAY ==
--- NOTE | ~2025-04-08 | XR_ITS ---
EXAMINATION: XR FOOT, RIGHT CLINICAL INFORMATION: pain COMPARISON: None available. TECHNIQUE: AP, lateral, and oblique views of the right foot. FINDINGS: There is no fracture, dislocation, or suspicious bone lesion. There is mild bunion formation involving the medial eminence of the first metatarsal head, with mild soft tissue prominence overlying. There is minimal hallux valgus. Joint spaces are maintained. Normal plantar arch. The midfoot and hindfoot appear normal. There is a small calcaneal plantar spur. There is mild dorsal soft tissue swelling of the forefoot. XR/XR foot RT min 3V IMPRESSION: 1. No acute bony abnormalities of the right foot. 2. Mild dorsal soft tissue swelling of the forefoot. 3. Mild bunion formation. Electronically signed by: Jc Quiñones MD 04/08/2025 03:24 PM EDT
--- NOTE | ~2025-04-08 | US_ITS ---
CLINICAL HISTORY: pain Venous duplex ultrasound right lower extremity Comparison: US/ME/SR - US LOWER EXTREMITY VEINS BILATERAL - 12/13/23 08:44 EDT Findings: The visualized deep veins are fully compressible with normal Doppler color flow and spectral tracings. No popliteal cyst. IMPRESSION: 1. Negative for right lower extremity deep vein thrombosis. This document has been electronically signed by: Adriana Blake MD on 04/08/2025 19:57:19
[2025-04-08 14:38] VITALS: BP 150/71; PULSE 90; RESP 18; TEMP 36.7; O2SAT 96; BMI 26.2
--- NOTE | 2025-04-08 14:38 | ED.LOWEXIN ---
HPI - Extremity Injury (Lower) General Chief Complaint: Extremity Injury, Lower Stated Complaint: R foot pain Time Seen by Provider: 04/08/25 18:14 Source: patient, RN notes reviewed and old records reviewed Mode of arrival: ambulatory Limitations: no limitations History of Present Illness ED Provider: Caleb HPI Narrative: 84-year-old female with a past medical history significant for asthma, hypothyroidism, hyperlipidemia, varicose veins, DVT not currently anticoagulated presents for evaluation of right foot pain and swelling. The patient reports redness and pain to the top of the right foot for about 1 week pain She denies any specific injury She also has pain and swelling to the right calf The patient initially denies any history of DVT, but on review of her medical history she was seen here in October of 2023 and diagnosed with a DVT of the left gastrocnemius vein. She was prescribed a course of Eliquis She is not currently on any anticoagulation Denies any chest pain, shortness of breath. Denies any fevers, chills pain She is concerned that she has a blood clot in her right leg due to the foot pain and swelling Related Data Home Medications ?Medication ?Instructions ?Recorded ?Confirmed omeprazole 20 mg tablet,delayed 20 mg PO DAILY 10/17/20 02/24/25 release acetaminophen 650 mg 650 mg PO Q12H 10/28/20 02/24/25 tablet,extended release (Tylenol 8 Hour) Previous Rx's ?Medication ?Instructions ?Recorded albuterol sulfate 90 mcg/actuation 2 puff inhalation Q4-6H #6.7 grams 08/21/21 aerosol inhaler naproxen 500 mg tablet (Naprosyn) 500 mg PO BID PRN pain #60 tabs 10/28/23 ezetimibe 10 mg tablet 10 mg PO DAILY #90 tabs 03/31/25 levothyroxine 75 mcg tablet 75 mcg PO DAILY #90 tabs 03/31/25 rosuvastatin 10 mg tablet 10 mg PO DAILY #90 tabs 03/31/25 amitriptyline 50 mg tablet 50 mg PO BEDTIME #90 tabs 04/01/25 aspirin 81 mg capsule 81 mg PO DAILY #7 caps 04/08/25 cephalexin 500 mg tablet 500 mg PO QID #28 tabs 04/08/25 Allergies Allergy/AdvReac Type Severity Reaction Status Date / Time latex (LATEX) Allergy Intermediate SWELLING Verified 04/08/25 14:40 BACTRIM Allergy Mild Rash Uncoded 02/24/25 08:54 Review of Systems Constitutional: Constitutional: Denies body ache(s), Denies chills and Denies fever(s) Eyes: Eyes: Denies blurry vision ENT: Denies dizziness Cardiovascular: Cardiovascular: Denies chest pain, Reports leg edema and Denies dyspnea on exertion Respiratory: Respiratory: Denies cough and Denies dyspnea on exertion Gastrointestinal: Gastrointestinal: Denies abdominal pain, Denies nausea and Denies vomiting Musculoskeletal: Musculoskeletal: Denies back pain Integumentary/Breasts: Skin/Breast: Reports erythema and Denies wounds Neurologic: Denies dizziness Psychiatric: Psychiatric: Denies anxiety PMFSH Past Medical History Medical History Hypothyroidism Hyperlipidemia Surgical History History of appendectomy History of tonsillectomy History of hysterectomy Social History Social History Housing: Condominium Alcohol intake: never Patient Tobacco Use Status: Never used Tobacco Smoked in Last 30 Days: No e-Cigarette/Vaping Use: Never Used Second Hand Smoke Exposure: No Use of substances other than those prescribed or required for medical reasons: No Advance Directives: No Advance Directives Information Provided: No service: No Current occupational status: employed Cognitive needs: No Hearing needs: No Vision needs: No Physical Exam Vital Signs: Vital Signs: Last Vital Signs Temp 97.0 F 04/08/25 20:26 Pulse 72 04/08/25 20:26 Resp 14 04/08/25 20:26 BP 103/53 L 04/08/25 20:26 Pulse Ox 97 04/08/25 20:26 O2 Del Method Room Air 04/08/25 20:26 BMI result Body Mass Index 26.2 Const: Other: Appearing of stated age General: healthy appearing, comfortable, no acute distress, alert and awake Nutritional Appearance: well nourished Orientation/consciousness: patient oriented x3 HEENT: Head: Yes normocephalic and Yes atraumatic Eyes: Eyelids: Yes eyelids normal Conjunctivae: conjunctivae normal Sclerae: sclerae normal Corneas: corneas normal Pupils: Equal, round and reactive pupils present EOM: EOMs intact bilaterally Neck: Neck: Yes full ROM Resp: Effort & Inspection: normal respiratory effort, able to speak in complete sentences and not labored GI: Inspection: No distended Palpation (GI): Soft to palpation, not firm, nontender, no guarding and not rigid Skin: General skin exam: elasticity normal Neuro: General: patient oriented x3 Cranial nerves: Yes Equal, round and reactive pupils present and Yes Bilaterally intact EOM present Cognition (Neuro): normal cognition Extrem: Other: There has a small about 4 cm area of faint erythema with increased warmth to the dorsal surface of the right foot. This area is minimally tender to palpation. There are no overlying wounds or lesions. The patient does have some mild right calf tenderness. No palpable cords. Negative Homans sign. Course Course Course Narrative: This is an RME: Additional HPI, ROS, PE not included below will be deferred to primary provider. RME assessment and note performed by: Raisa Martinez PA-C This is a 36-yrjj-wtp-female, with a hx of hypothyroidism, who presents to the ER with a complaint of right foot pain x 1 week. Reporting redness, pain in the top of foot. Pt is a poor historian - pt has a hx of varicose veins with inflammation > it appears that she was seen here last year and was diagnosed with a DVT and thrombophlebitis - was started on Eliquis however patient does not recall this whatsoever. Plan: Labs, x-ray, further ER evaluation needed. Reevaluation(s) Reevaluation #1: 9:11 PM 04/08/2025 (Dimas CORCORAN): Patient is signed out to this provider at shift change, in summary the patient is an 84-year-old female presenting to the ED for evaluation of right foot pain with warmth and redness over the past week. The patient's laboratory evaluation was reassuring, x-ray negative for acute injury. The patient was signed out pending results of ultrasound. At this time the patient's ultrasound has resulted and shows no evidence of DVT. Patient will be discharged per initial provider's discharge instructions. Medications Administered Discontinued Medications Generic Name Dose Route Start Last Admin Trade Name Freq PRN Reason Stop Dose Admin Cephalexin HCl 500 mg 04/08/25 19:10 04/08/25 19:18 Cephalexin 500 Mg Capsule PO 04/08/25 19:11 500 mg ONCE ONE Administration Medical Decision Making Medical Decision Making [facility] Narrative: 84-year-old female with a past medical history as above presents for evaluation of atraumatic right foot pain and swelling with faint erythema. This is more over the mid foot and not quite the right 1st MTP joint. She does have some faint calf tenderness with swelling. Her symptoms are more likely to be consistent with a superficial thrombophlebitis versus a faint cellulitis. I have a lower suspicion for DVT but the patient is not anticoagulated currently does have a history of DVT. We will get an ultrasound to rule this out. X-ray shows no evidence of fracture but does show faint soft tissue swelling. Differential Diagnosis Differential Diagnoses: The differential diagnosis associated with the presentation includes Cellulitis Superficial thrombophlebitis DVT Gout less likely Lab Data [facility] Lab Attestation statement: I reviewed the patient's lab results. No leukocytosis or significant anemia. Normal platelet count.. No significant chemistry abnormalities. 04/08/25 17:39 04/08/25 17:39 Labs: Lab Results 04/08/25 Range/Units 17:39 WBC 6.2 (4.8-10.8) X10*3/uL RBC 4.55 (4.20-5.50) X10*6/uL Hgb 12.9 (12.0-16.0) g/dl Hct 40.4 (37.0-47.0) % MCV 88.8 (80.0-98.0) fL MCH 28.4 (27.0-33.0) pg MCHC 31.9 (31.0-35.0) g/dl RDW 13.8 (11.0-16.0) % Plt Count 268 (160-400) X10*3/uL MPV 10.0 (9.4-12.3) fL Immature Gran % (Auto) 0.2 (0.0-0.4) % Neut % (Auto) 52.3 (45-73) % Lymph % (Auto) 33.9 (20-40) % Madison % (Auto) 7.3 (2-11) % Eos % (Auto) 5.3 H (0-4) % Baso % (Auto) 1.0 (0-2) % Lymph # (Auto) 2.1 (1.2-4.9) X10*3/uL Madison # (Auto) 0.5 (0.1-1.2) X10*3/uL Eos # (Auto) 0.3 (0.0-0.4) X10*3/uL Baso # (Auto) 0.1 (0.0-0.2) X10*3/uL Abs Immat Gran (auto) 0.01 (0.00-0.03) X10*3/uL Absolute Neuts (auto) 3.2 (2.0-8.3) x10*3/uL Absolute Nucleated RBC 0.000 (0.0-0.012) X10*3/uL Nucleated RBC % (auto) 0.0 (0.0-0.2) /100WBC ESR 6 (0-20) MM/HR Sodium 139 (135-145) mmol/L Potassium 4.0 (3.3-5.1) mmol/L Chloride 104 (96-108) mmol/L Carbon Dioxide 27 (22-29) mmol/L Anion Gap 12 (12-20) BUN 8 L (9-16) mg/dL Creatinine 0.82 (0.5-1.4) mg/dL Estim Creat Clear Calc 50.5 Estimated GFR > 60 Random Glucose 94 (60-115) mg/dL Uric Acid 4.5 (2.4-5.7) mg/dL Calcium 8.9 D (8.4-10.2) mg/dL Total Bilirubin 0.4 (0.0-1.0) mg/dL Direct Bilirubin 0.2 (0.0-0.5) mg/dL AST 28 (5-31) U/L ALT 13 (0-31) U/L Alkaline Phosphatase 94 (39-117) U/L C-Reactive Protein < 0.10 (< or = 0.50) mg/dL Total Protein 7.5 (6.5-8.0) g/dL Albumin 4.6 (3.5-5.0) g/dL Independent Interpretation I performed an independent interpretation of an: Ultrasound (No obvious DVT) Radiology Impression Discussion of test interpretation with radiology: I have reviewed the radiologist's reading. Radiologist Impression: Venous duplex ultrasound right lower extremity Comparison: US/[place]/SR - US LOWER EXTREMITY VEINS BILATERAL - 12/13/23 08:44 EDT Findings: The visualized deep veins are fully compressible with normal Doppler color flow and spectral tracings. No popliteal cyst. IMPRESSION: 1. Negative for right lower extremity deep vein thrombosis. This document has been electronically signed by: Adriana Blake MD on 04/08/2025 19:57:19 Discharge Plan Discharge Clinical Impression: Foot pain, right Patient Disposition: Home, Self-Care Instructions: Arthralgia (ED) Additional Instructions: Your ultrasound was negative for a blood clot. Your blood work was reassuring. I recommend taking Keflex 4 times daily for 1 week. You may also benefit from warm compresses to the area. I recommend a baby aspirin daily for 5 days as well Prescriptions: New aspirin 81 mg capsule 81 mg PO DAILY Qty: 7 0RF cephalexin 500 mg tablet 500 mg PO QID Qty: 28 0RF No Action albuterol sulfate 90 mcg/actuation HFA aerosol inhaler 2 puff inhalation Q4-6H Qty: 6.7 0RF ezetimibe 10 mg tablet 10 mg PO DAILY Qty: 90 0RF levothyroxine 75 mcg tablet 75 mcg PO DAILY Qty: 90 0RF rosuvastatin 10 mg tablet 10 mg PO DAILY Qty: 90 0RF amitriptyline 50 mg tablet 50 mg PO BEDTIME Qty: 90 0RF acetaminophen [Tylenol 8 Hour] 650 mg tablet extended release 650 mg PO Q12H omeprazole 20 mg tablet,delayed release (DR/EC) 20 mg PO DAILY naproxen [Naprosyn] 500 mg tablet 500 mg PO BID PRN (Reason: pain) Qty: 60 0RF Referrals: Conrad Ness FNP-C [Primary Care Provider, Internal Medicine] Clinical Impression: Foot pain, right Print Language: Polish
--- OUTSIDE RECORDS SUMMARY | 2025-04-08 17:41 | XMS_ITS | Patient Health Record ---
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 confirmed Problem Irritable bowel syndrome (50575128) Irritable bowel syndrome (564.1) Active confirmed Problem Diarrhea (19995619) Diarrhea (787.91) Active confirmed Problem Anemia (929656857) Anemia (285.9) Active confir med Problem Gastroesophageal reflux disease (888818944) GERD (gastroesophag eal reflux disease) (530.81) Active confirmed Problem Iron deficiency anemia (35450362) Iron deficiency anemia (280.9) Active confirmed Problem Iron deficiency anemia (24479519) Anemia, iron deficiency (280.9) Active confirmed Plan Of Treatment Pending Test Test Name Order Date IRON + IBC (FE) 02/01/2013 FERRITIN 02/01/2013 VITAMIN B12 AND FOLATE 02/01/2013 Future Test Test Name Order Date UPPER GI ENDOSCOPY 04/07/2013 COLONOSCOPY 04/07/2013 Insurance Providers Payer Name Payer Address Payer Phone Subscriber Number Group Number Insured Name Patient Relationship to Insured Coverage Start Date Coverage End Date [facility] [address] [facility] [place] [phone] [id number] MAEVE RODAS Self - patient is the insured MEDICARE OF [place] [address] [place] [address] [id number] ADRIANNA MAEVE Self - patient is the insured Medical (General) History Medical History History ICD Code UPPER ENDOSCOPY IN 08/2010-mo derate sized HH and small area of Clinton's-no dysplasia; bx neg for celiac disease MIGRAINES HYPOTHYROIDISM Denies PA,DM,CVA,renal disease Neg colonoscopy in 06/[address] Dixon [facility] Hyperlipidemia Mild asthma--uses an inhaler prn ? of ischemic colitis in 07/2010 based o n abnormal CT Upper endo in 04/2013--no dysplasia in e Clinton's, HH, no celiac disease Colonoscopy in 04/2013-no spencer yps, nonspecific inflammation--no definitive colitis Surgical History Surgery Date(Month/Year) Benign breast lumps Appy ALEJANDRA with BSO--endometriosis PARTIAL THYROIDECTOMY BLADDER SUSPENSION
[2025-04-08 17:43] LABS: MANUAL DIFF FLAG NO
[2025-04-08 17:44] VITALS: BP 128/55; PULSE 73; RESP 18; O2SAT 97
[2025-04-08 17:46] LABS: Hematocrit 40.4 % (37.0-47.0); Hemoglobin 12.9 g/dl (12.0-16.0); Imm Gran Abs Auto 0.01 X10*3/uL (0.00-0.03); Imm Gran Pct Auto 0.2 % (0.0-0.4); Lymphocytes Absolute Auto 2.1 X10*3/uL (1.2-4.9); Mean Corpuscular HGB Conc 31.9 g/dl (31.0-35.0); Mean Corpuscular Hemoglobin 28.4 pg (27.0-33.0); Mean Corpuscular Volume 88.8 fL (80.0-98.0); NRBC Abs Auto 0.000 X10*3/uL (0.0-0.012); NRBC Pct Auto 0.0 /100WBC (0.0-0.2); Platelet Count 268 X10*3/uL (160-400); Red Blood Count 4.55 X10*6/uL (4.20-5.50); White Blood Count 6.2 X10*3/uL (4.8-10.8)
[2025-04-08 17:59] LABS: Alanine Aminotransferase 13 U/L (0-31); Albumin Level 4.6 g/dL (3.5-5.0); Alkaline Phosphatase 94 U/L (39-117); Anion Gap 12 (12-20); Aspartate Amino Transferase 28 U/L (5-31); Blood Urea Nitrogen 8 mg/dL (9-16); Calcium 8.9 mg/dL (8.4-10.2); Carbon Dioxide 27 mmol/L (22-29); Chloride 104 mmol/L (96-108); Creatinine Clr Calc Pharmacy 50.5; Estimated Glomerular Filt Rate > 60; Potassium 4.0 mmol/L (3.3-5.1); Sodium 139 mmol/L (135-145); Total Protein 7.5 g/dL (6.5-8.0); Uric Acid 4.5 mg/dL (2.4-5.7)
[2025-04-08 20:26] VITALS: BP 103/53; PULSE 72; RESP 14; TEMP 36.1; O2SAT 97
[2025-04-08 21:26] VITALS: BP 103/53; PULSE 72; RESP 14; TEMP 36.1; O2SAT 97
== END 2025-04-08 21:32 | disposition home or self-care (01) ==
PROVIDERS: Physician Assistant Medical; Emergency Provider Emergency Medicine
DX: M79.671 Pain in right foot (principal); Z86.718 Personal history of other venous thrombosis and embolism; Z79.01 Long term (current) use of anticoagulants; Z79.899 Other long term (current) drug therapy
CPT/HCPCS: 36415; 73630; 80048; 80076; 84550; 85025; 85652; 86140; 93971; 99284

== ENCOUNTER → 2025-04-08 14:46 | Outpatient (BNV) | payer MEDICARE, SELFPAY | PROVIDERS: Visit Provider Radiology Diagnostic Radiology | DX: R22.41 Localized swelling, mass and lump, right lower limb (principal) | CPT/HCPCS: 73630 ==

== ENCOUNTER 2025-04-21 08:11 | Outpatient (AMB) | payer MEDICARE, SELFPAY ==
[2025-04-21 08:16] VITALS: BP 120/62; PULSE 81; RESP 18; TEMP 36.1; O2SAT 94; BMI 26.8
--- NOTE | 2025-04-21 08:16 | A.OFFPC_ITS ---
Vital Signs 04/21/25 08:16 Height 5 ft 4 in Weight 156 lb 2 oz BMI 26.8 BP 120/62 Blood Pressure Location Lt brachial Position Sitting Respiration 18 Pulse 81 Pulse Source Pulse Oximeter Temp 96.9 F Temp Source Temporal Artery Scan Pulse Oximetry (%) 94 Oxygen Delivery Method Room Air Intake [place] [facility] [place] Porter Sample Case Required: No Accompanied by: Self / Same As Patient Allergies latex (LATEX) Allergy (Intermediate, Verified 04/21/25 08:39) SWELLING BACTRIM Allergy (Mild, Uncoded 04/21/25 08:39) Rash Medication List - Last Reconciled 04/21/25 by ZOHREH Montalvo acetaminophen ER (Tylenol 8 Hour) 650 mg PO Q12H albuterol sulfate 90 mcg/actuation 2 puffs inhalation Q4-6H amitriptyline 50 mg PO BEDTIME aspirin 81 mg PO DAILY ezetimibe 10 mg PO DAILY levothyroxine 75 mcg PO DAILY omeprazole 20 mg PO DAILY rosuvastatin 10 mg PO DAILY Tobacco use date assessed: 04/21/25 Fall risk assessment: No Falls in past year Last assessed Fall Risk: 04/21/25 Dental Screening Dental Screen Date: 04/21/25 Did you have a dental visit in the last 12 months?: No Did you have a dental problem in the last 6 months where you did not have access to dental care?: No Was dental information given to patient?: No HPI [facility] [place] HPI Details The patient is an 84-year-old female presenting for follow up hospital visit for right foot pain. Patient was [place] [facility] [place] foot pain and swelling. She initially experienced swelling and pain in the foot, leading to an emergency room visit where x-rays and tests for blood clots were negative. Patient was treated for cellulitis, She is following up today. Top of right foot without any swelling or discoloration. The patient denies pain to the area. Positive CMS in all toes, positive pedal pulse noted. Patient also noted to have a small skin tear to the dorsal region of right hand. Skin tear 1.5 cm was caused by dog leash. No signs or symptoms of infection to area. Area was cleansed and Xeroform dressing was applied. Patient was given Xeroform dressing to apply at home, aseptic technique was shown to the patient. [facility] Medical History Hypothyroidism Hyperlipidemia Surgical History History of appendectomy History of tonsillectomy History of hysterectomy Social History Housing: Condominium Alcohol intake: never Patient Tobacco Use Status: Never used Tobacco e-Cigarette/Vaping Use: Never Used Second Hand Smoke Exposure: No service: No Current occupational status: employed Cognitive needs: No Hearing needs: No Vision needs: No Questionnaire PHQ-9 Over the last 2 weeks, how often have you been bothered by any of the following problems? 1. Little interest or pleasure in doing things: not at all 2. Feeling down, depressed, or hopeless: not at all 3. Trouble falling or staying asleep, or sleeping too much: not at all 4. Feeling tired or having little energy: not at all 5. Poor appetite or overeating: not at all 6. Feeling bad about yourself - or that you are a failure or have let yourself or your family down: not at all 7. Trouble concentrating on things, such as reading the newspaper or watching television: not at all 8. Moving or speaking so slowly that other people could have noticed. Or the opposite - being so fidgety or restless that you have been moving around a lot more than usual: not at all 9. Thoughts that you would be better off or of hurting yourself in some way: not at all Total score: 0 Depression Screening Interpretation: Negative Depression Screening Done: Yes Source: Developed by Drs. Angel Clarke, Alicia Mobley, Sukhi Schmitt and colleagues, with an educational radha from [employer]. Thrive Questionnaire Date Thrive assessed: 04/21/25 I am a: Patient What is your living situation today?: I have a steady place to live Within the past 12 months, did the food you bought not last and you didn't have the money to get more?: Never true Within the past 12 months, did you worry whether your food would run out before you got money to buy more?: Never true Do you have trouble paying for medicines?: No Do you have trouble getting transportation to medical appointments?: No Do you have trouble paying your heating and electricity bill?: No Do you have trouble taking care of your child, family member or friend?: No Do you have trouble with day-to-day activities such as bathing, preparing meals, shopping, managing finances, etc.?: No Are you currently unemployed and looking for a job?: Yes Are you interested in more education?: No Please select the resources that you would like help with: None Currently or been in a relationship where the following occur: No concerns reported THRIVE Score: 0 AUDIT C Alcohol Use Questionnaire (AUDIT-C) 1. How often do you have a drink containing alcohol?: Never Total Score: 0 CURTIS-7 AMB Questionnaire CURTIS-7 Date CURTIS - 7 assessed: 04/21/25 Feeling nervous, anxious, or on edge: 0 = Not at all Not being able to stop or control worryin = Not at all Worrying too much about different things: 0 = Not at all Trouble relaxin = Not at all Being so restless that it is hard to sit still: 0 = Not at all Becoming easily annoyed or irritable: 0 = Not at all Feeling afraid as if something awful might happen: 0 = Not at all Total CURTIS-7 score (0-4 normal; 5-9 mild; 10-14 moderate; 15-21 severe): 0 Source: Developed by Drs. Angel Clarke, Alicia Mobley, Sukhi Schmitt and colleagues, with an educational radha from [employer]. Review of Systems Const Denies body aches, Denies chills, Denies fever(s), Denies headache(s) and Denies poor appetite Eyes Reports no additional complaints ENT Denies dysphagia, Denies dizziness, Denies headache(s) and Denies odynophagia Card Denies chest pain, Denies syncope, Denies edema, Denies irregular heart rhythm, Denies lightheadedness and Denies dyspnea Resp Denies cough and Denies dyspnea GI Denies abdominal pain, Denies constipation, Denies dysphagia, Denies diarrhea, Denies nausea, Denies odynophagia and Denies vomiting Reports no additional complaints Musc Reports no additional complaints and Denies abnormal gait Skin/Breast Reports wounds (Right hand skin tear) and Reports other (Right foot pain and swelling resolved) Neuro Denies abnormal gait, Denies dizziness, Denies syncope and Denies headache(s) Psych Reports no additional complaints Physical exam (Primary Care) Vital Signs: Last Vital Signs Temp 96.9 F 04/21/25 08:16 Pulse 81 04/21/25 08:16 Resp 18 04/21/25 08:16 BP 120/62 04/21/25 08:16 Pulse Ox 94 04/21/25 08:16 Oxygen Delivery Method Room Air 04/21/25 08:16 BMI result Body Mass Index 26.8 Tobacco/Smoking Status: Tobacco use Status Tobacco use date assessed 04/21/25 04/21/25 08:25 Patient Tobacco Use Status Never used Tobacco 04/21/25 08:25 e-Cigarette/Vaping Use Never Used 04/21/25 08:25 PHQ-9: PHQ-9 Score PHQ-9: Total score 0 04/21/25 09:03 Depression Screening Interpretation: Negative Thrive Assessment: Date of Thrive Assessment Date Thrive assessed 04/21/25 04/21/25 08:25 Currently or been in a relationship where the following occur: No concerns reported Const General: cooperative, healthy appearing, comfortable and no acute distress Orientation/consciousness: patient oriented x3 HENMT Head: Yes normocephalic Ears: hearing grossly normal bilaterally General nose exam: Normal external nose present Eyes General: appearance normal, both eyes and all related structures Conjunctivae: conjunctivae normal Neck Neck: Yes full ROM and Yes no lymphadenopathy Resp Effort & Inspection: normal respiratory effort Auscultation: clear to auscultation bilaterally, no crackles, no rales, no rhonchi and no wheezes Cardio Rate: regular rate Rhythm: regular rhythm Skin Wounds: wounds noted (Skin tear 1.5 cm no signs or symptoms of infection) Neuro General: patient oriented x3 Gait exam (Neuro): Normal gait present Extrem General: Yes normal to inspection, Yes full ROM and No edema Psych Affect: normal affect Attitude: cooperative Insight: Good insight present (Psych) Judgement: Good judgement present (Psych) Coding Level of Care Code Est Pt Level 3 (01804) Diagnoses Skin tear of right hand without complication, subsequent encounter S61.411D Encounter type: subsequent encounter Cellulitis of right upper extremity L03.113 Site of cellulitis: extremity Site of cellulitis of extremity: upper extremity Laterality: right Time Spent (min) 36 Assessment & Plan Assessment & Plan (1) Skin tear of right hand without complication: Code(s): S61.411A - Laceration without foreign body of right hand, initial encounter Category: Medical Qualifiers: Encounter type: subsequent encounter Qualified Code(s): S61.411D - Laceration without foreign body of right hand, subsequent encounter Plan: Top of Right hand skin tear measured 1.5 cm. No sinus symptoms of infection. Area cleansed and dressed with Xeroform dressing. Xeroform dressing given to the patient to continue for 7 days if needed. Patient to contact the office if the area becomes reddened, swollen or have pain. (2) Cellulitis: Code(s): L03.90 - Cellulitis, unspecified Category: Medical Qualifiers: Site of cellulitis: extremity Site of cellulitis of extremity: upper extremity Laterality: right Qualified Code(s): L03.113 - Cellulitis of right upper limb Plan: The patient was treated with antibiotics for a foot infection, which resolved the symptoms. No further intervention is required at this time, but the patient should monitor for any recurrence of symptoms.
--- OUTSIDE RECORDS SUMMARY | 2025-04-21 09:15 | XMS_ITS | Patient Health Record ---
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 Problem Irritable bowel syndrome (24102848) Irritable bowel syndrome (564.1) Active confirmed Problem Diarrhea (41945224) Diarrhea (787.91) Active confirmed Problem Anemia (024999907) Anemia (285.9) Active confir med Problem Gastroesophageal reflux disease (430573204) GERD (gastroesophag eal reflux disease) (530.81) Active confirmed Problem Iron deficiency anemia (18855388) Iron deficiency anemia (280.9) Active confirmed Problem Iron deficiency anemia (66227512) Anemia, iron deficiency (280.9) Active confirmed Plan Of Treatment Pending Test Test Name Order Date IRON + IBC (FE) 02/01/2013 FERRITIN 02/01/2013 VITAMIN B12 AND FOLATE 02/01/2013 Future Test Test Name Order Date UPPER GI ENDOSCOPY 04/07/2013 COLONOSCOPY 04/07/2013 Insurance Providers Payer Name Payer Address Payer Phone Subscriber Number Group Number Insured Name Patient Relationship to Insured Coverage Start Date Coverage End Date [facility] [address] [facility], [place] [phone] [id number] MAEVE RODAS Self - patient is the insured MEDICARE OF [place] [address] [place] [address] [phone] [id number] ADRIANNA MAEVE Self - patient is the insured Medical (General) History Medical History History ICD Code UPPER ENDOSCOPY IN 08/2010-mo derate sized HH and small area of Clinton's-no dysplasia; bx neg for celiac disease MIGRAINES HYPOTHYROIDISM Denies [place],DM,CVA,renal disease Neg colonoscopy in 06/[address] Dixon [facility] Hyperlipidemia Mild asthma--uses an inhaler prn ? of ischemic colitis in 07/2010 based o n abnormal CT Upper endo in 04/2013--no dysplasia in e Clinton's, HH, no celiac disease Colonoscopy in 04/2013-no spencer yps, nonspecific inflammation--no definitive colitis Surgical History Surgery Date(Month/Year) Benign breast lumps Appy ALEJANDRA with BSO--endometriosis PARTIAL THYROIDECTOMY BLADDER SUSPENSION
== END 2025-04-21 09:06 | disposition home or self-care (01) ==
LOC: HO.HMCH 08:12
DX: S61.411A Laceration without foreign body of right hand, initial encounter (principal); L03.113 Cellulitis of right upper limb

== ENCOUNTER → 2025-04-21 08:11 | Outpatient (BNVA) | payer MEDICARE, SELFPAY | DX: M79.671 Pain in right foot (principal); M25.474 Effusion, right foot; L03.113 Cellulitis of right upper limb; S61.411D Laceration without foreign body of right hand, subsequent encounter; X58.XXXD Exposure to other specified factors, subsequent encounter | CPT/HCPCS: 96127; 99212 ==

== ENCOUNTER 2025-05-18 07:55 | Outpatient (AMB) | payer MEDICARE, SELFPAY ==
--- OUTSIDE RECORDS SUMMARY | 2025-05-18 00:05 | XMS_ITS | Encounter Summary ---
Author Organization [facility] Address [address] [place] [address] Phone Care Team Providers Care Baggage Agent Supervisor Name Role Phone Pcp, Unknown Primary Care Provider Unavailabl e Reason for Visit * Reason Comments Tick Removal Encounter Details Date Type Department Care Team ([facility] st Contact Info) Description 05/18/2025 12:05 AM EDT - 05/18/2025 12:06 AM EDT Emergency [facility] [address] [place] [address] Discharge Disposition: Left Without Being Seen Social History Tobacco Use Types Packs/Day Years Used Date Smoking Tobacco: Never Smokeless Tobacco: Never Tobacco Cessation:Counseling Given: Not Answered Alcohol Use Standard Drinks/Week Comments Not Currently 0 (1 standard drink = 0.6 oz pur e alcohol) Education Answer Date Recorded Are you interested in more education? Not on edilma e 05/18/2025 Are you concerned about learning? Not on file 05/18/2025 No 05/18/2025 No 05/18/2025 Digital Access Answer Date Recorded No 05/18/2025 No 05/18/2025 Reliable internet access at home? Not on file 05/18/2025 Device with a working camera? Not on file Intimate Partner Violence Answer Date R ecorded Are you denied basic needs s uch as food, clothing, or medical care? No 05/17/2025 In the past 12 months have y ou been in a relationship with a person who hurts, threatens, or tries to control you? No 05/17/2025 Are you denied basic needs s uch as food, clothing, or medical care? No 05/17/2025 In the past 12 months have y ou been in a relationship with a person who hurts, threatens, or tries to control you? No 05/17/2025 Comments Unknown Sex and Gender Information Value Date Recorded Sex Assigned at Female 05/17/2025 8:06 PM EDT Legal Sex Female 7:59 PM EDT Gender Identity Female 05/17/2025 8:06 PM EDT Sexual Orientation Straight 05/17/2025 8: 06 PM EDT documented as of this encounter Last Filed Vital Signs Vital Sign Reading Time Taken Comments Blood Pressure 129/77 05/17/2025 9:56 PM EDT Pulse 85 05/17/2025 9:56 PM EDT Temperature 35.4 C (95.7 F) 05/17/2025 9:56 PM EDT Respiratory Rate 18 05/17/2025 9:56 PM EDT Oxygen Saturation 94% 05/17/2025 9:56 PM EDT Inhaled Oxygen Concentration - - Weight 68 kg (150 lb) 05/17/2025 8:07 PM EDT Height 162.6 cm (5' 4 ) 05/17/2025 8:07 PM EDT Body Mass Index 25.75 05/17/2025 8:07 PM EDT documented in this encounter Functional Status * Calculated C-SSRS Risk Score (Lifetime/Recent) Answer Date of Assessment Author No Risk Indicated 05/17/2025 8:06 PM EDT Xochitl Barry RN * [place] Suicide Severity Rating Scale (Screener/Recent Self-Report) Question Answer Date of Assessment Author 1. Wish to be (Past 1 Month) No 025 8:06 PM EDT Xochitl Flannery, [place] 2. Non-Specific Active Suici rachel Thoughts (Past 1 Month) No 05/17/2025 8:06 PM EDT Xochitl Flannery, RN 6. Suicidal Behavior (Lifetime) No 8:06 PM EDT Xochitl Flannery, RN documented as of this encounter ED Notes * Xochitl Flannery RN - 05/17/2025 8:05 PM EDT Pt here for tick removal. Pt has a tick embedded in her neck. On arrival, pt is alert and well appearing. documented in this encounter Plan of Treatment Not on file documented as of this encounter Visit Diagnoses Not on filedocumented in this encounter Care Teams Baggage Agent Supervisor Relationship Specialty Start Date End Date Pcp, Unknown PCP - General 05/17/25 documented as of this encounter Additional Source Comments The information contained in this document represents components of the legal health record. It is not the complete legal health record.[facility]
--- OUTSIDE RECORDS SUMMARY | 2025-05-18 08:01 | XMS_ITS | Patient Health Record ---
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 Problem Irritable bowel syndrome (21667603) Irritable bowel syndrome (564.1) Active confirmed Problem Diarrhea (60638563) Diarrhea (787.91) Active confirmed Problem Anemia (322230135) Anemia (285.9) Active confir med Problem Gastroesophageal reflux disease (389023968) GERD (gastroesophag eal reflux disease) (530.81) Active confirmed Problem Iron deficiency anemia (63391577) Iron deficiency anemia (280.9) Active confirmed Problem Iron deficiency anemia (70369132) Anemia, iron deficiency (280.9) Active confirmed Plan Of Treatment Pending Test Test Name Order Date IRON + IBC (FE) 02/01/2013 FERRITIN 02/01/2013 VITAMIN B12 AND FOLATE 02/01/2013 Future Test Test Name Order Date UPPER GI ENDOSCOPY 04/07/2013 COLONOSCOPY 04/07/2013 Insurance Providers Payer Name Payer Address Payer Phone Subscriber Number Group Number Insured Name Patient Relationship to Insured Coverage Start Date Coverage End Date [facility] [address] [facility], [place] [phone] [id number] MAEVE RODAS Self - patient is the insured MEDICARE OF [place] [address] [place] [address] [id number] ADRIANNA MAEVE Self - patient is the insured Medical (General) History Medical History History ICD Code UPPER ENDOSCOPY IN 08/2010-mo derate sized HH and small area of Clinton's-no dysplasia; bx neg for celiac disease MIGRAINES HYPOTHYROIDISM Denies [place],DM,CVA,renal disease Neg colonoscopy in 06/[address] Dixon [facility] Hyperlipidemia Mild asthma--uses an inhaler prn ? of ischemic colitis in 07/2010 based o n abnormal CT Upper endo in 04/2013--no dysplasia in e Clinton's, HH, no celiac disease Colonoscopy in 04/2013-no spencer yps, nonspecific inflammation--no definitive colitis Surgical History Surgery Date(Month/Year) Benign breast lumps Appy ALEJANDRA with BSO--endometriosis PARTIAL THYROIDECTOMY BLADDER SUSPENSION
--- OUTSIDE RECORDS SUMMARY | 2025-05-18 08:01 | XMS_ITS | Clinical Summary ---
Author Organization [facility] Address [address] [place] [phone] Phone Care Team Providers Care Auto Phone Installer Name Role Phone Pcp, Unknown Primary Care Provider Unavailabl e Allergies No known active allergies Medications No known medications Encounters Date Type Department Care Team Description 05/18/2025 12:05 AM EDT - 05/18/2025 12:06 AM EDT Emergency [facility] Emergency [address] [place] [address] Discharge Disposition: Left Without Being Seen from Last 3 Months Social History Tobacco Use Types Packs/Day Years [...] Orientation Straight 05/17/2025 8: 06 PM EDT Last Filed Vital Signs Vital Sign Reading [...] Mass Index 25.75 05/17/2025 8:07 PM EDT Plan of Treatment Health Maintenance Due Date Last Done Comments Adult Td,Tdap Booster 1942 DEPRESSION SCREENING 1954 PNEUMOCOCCAL VACCINES (50+ y ears) (1 of 1 - PCV) 1992 ZOSTER VACCINES (1 of 2) 1992 OSTEOPOROSIS SCREENING INITI AL (ONE-TIME) 2007 RSV VACCINE (1 - 1-dose 75+ series) 2017 INFLUENZA VACCINE (#1) 2025 COVID-19 VACCINE ( - 2024-2 6 season) 2025 HEPATITIS A VACCINES Aged Out No long er eligible based on patient's age to complete this topic HIB VACCINES Aged Out No longer eligi ble based on patient's age to complete this topic MENINGOCOCCAL VACCINES (ACWY) Aged Out No longer eligible based on patient's age to complete this topic MENINGOCOCCAL VACCINES (B) Aged Out N o longer eligible based on patient's age to complete this topic Medical Devices Not on file Care Teams Auto Phone Installer Relationship Specialty Start Date End Date Pcp, Unknown PCP - General 05/17/25 Additional Source Comments The information contained in this document represents components of the legal health record. It is not the complete legal health record.[facility]
--- NOTE | 2025-05-18 08:08 | AM.OFFWIN_ITS ---
Intake Vital Signs 3 05/18/25 08:10 Height 5 ft 4 in Weight 154 lb BMI 26.4 BP 132/70 Blood Pressure Location Rt brachial Position Sitting Respiration 15 Pulse 82 Pulse Source Pulse Oximeter Temp 97.7 F Temp Source Oral Pulse Oximetry (%) 97 Oxygen Delivery Method Room Air Intake Visit Reasons: EP Bit by tick Intake Note: Pt is here today c/o tick bite Rt side of neck: noticed last night Patient Tobacco Use Status: Never used Tobacco Allergies latex (LATEX) Allergy (Intermediate, Verified 04/21/25 08:39) SWELLING BACTRIM Allergy (Mild, Uncoded 04/21/25 08:39) Rash Medication List - Last Reconciled 05/18/25 by Aliyah Horta MD acetaminophen ER (Tylenol 8 Hour) 650 mg PO Q12H albuterol sulfate 90 mcg/actuation 2 puffs inhalation Q4-6H amitriptyline 50 mg PO BEDTIME aspirin 81 mg PO DAILY ezetimibe 10 mg PO DAILY levothyroxine 75 mcg PO DAILY omeprazole 20 mg PO DAILY rosuvastatin 10 mg PO DAILY HPI EP Bit by tick 2 HPI0 Details History of Present Illness The patient is an 84-year-old female presenting with a tick bite. Tick bite: - Occurred around 7:00 PM the previous e vening. - The tick was located on the neck. - Attempts were made to remove the tick, but the legs broke off, and the head remained embedded patient think - Mild discomfort reported in the affect ed area. - Patient concerned about potential Lyme disease. Problem List - Tick bite Plan - Provide a prophylactic dose of medicat ion to prevent Lyme disease, as discussed. doxycyline 200 mg once - Monitor the site of the bite for any r jacky development, specifically for a rash with central clearing. - No need for topical applications or re moval of remaining tick parts as they will naturally be expelled by the body. if there is any, but exam shows no parts are embeded Review of Systems - General: No fever no chills - Neurological: No headaches no dizziness Physical Exam General: No acute distress HEENT: No acute findings Neck: Supple, tick bite noted right side of anterior neck without any tick parts, mild erythema present Respiratory system: Able to talk in full sentences, no audible wheeze Gastrointestinal: No pain PFSH Medical History Hypothyroidism Hyperlipidemia Surgical History History of appendectomy History of tonsillectomy History of hysterectomy Social History Housing: Condominium Alcohol intake: never Patient Tobacco Use Status: Never used Tobacco e-Cigarette/Vaping Use: Never Used Second Hand Smoke Exposure: No service: No Current occupational status: employed Cognitive needs: No Hearing needs: No Vision needs: No Physical Exam Vital Signs: Last Vital Signs Temp 97.7 F 05/18/25 08:10 Pulse 82 05/18/25 08:10 Resp 15 05/18/25 08:10 BP 132/70 05/18/25 08:10 Pulse Ox 97 05/18/25 08:10 Oxygen Delivery Method Room Air 05/18/25 08:10 BMI result Body Mass Index 26.4 Neck Neck images: 2 1. site of tick bite without any parts seen Assessment & Plan Assessment & Plan (1) Tick bite of neck: Code(s): S10.96XA - Insect bite of unspecified part of neck, initial encounter; W57.XXXA - Bitten or stung by nonvenomous insect and other nonvenomous arthropods, initial encounter Qualifiers: Encounter type: initial encounter Qualified Code(s): S10.96XA - Insect bite of unspecified part of neck, initial encounter; W57.XXXA - Bitten or stung by nonvenomous insect and other nonvenomous arthropods, initial encounter (2) Skin erythema: Code(s): L53.9 - Erythematous condition, unspecified Plan History of Present Illness The patient is an 84-year-old female presenting with a tick bite. Tick bite: - Occurred around 7:00 PM the previous evening. - The tick was located on the neck. - Attempts were made to remove the tick, but the legs broke off, and the head remained embedded patient think - Mild discomfort reported in the affected area. - Patient concerned about potential Lyme disease. Problem List - Tick bite Plan - Provide a prophylactic dose of medication to prevent Lyme disease, as discussed. doxycyline 200 mg once - Monitor the site of the bite for any rash development, specifically for a rash with central clearing. - No need for topical applications or removal of remaining tick parts as they will naturally be expelled by the body. if there is any, but exam shows no parts are embeded Medications: New 2 doxycycline hyclate 200 mg (2 x 100 mg) PO DAILY 2 tabs 0RF 1 day Coding Level of Care Code Est Pt Level 3 (57231) Diagnoses Tick bite of neck, initial encounter S10.96XA; W57.XXXA Encounter type: initial encounter Skin erythema L53.9
[2025-05-18 08:10] VITALS: BP 132/70; PULSE 82; RESP 15; TEMP 36.5; O2SAT 97; BMI 26.4
== END 2025-05-18 08:20 | disposition home or self-care (01) ==
PROVIDERS: Visit Provider Internal Medicine
DX: S10.96XA Insect bite of unspecified part of neck, initial encounter (principal); W57.XXXA Bitten or stung by nonvenomous insect and other nonvenomous arthropods, initial encounter; L53.9 Erythematous condition, unspecified

== ENCOUNTER → 2025-05-18 07:55 | Outpatient (BNVA) | payer MEDICARE, SELFPAY | PROVIDERS: Visit Provider Internal Medicine | DX: S10.16XA Insect bite (nonvenomous) of throat, initial encounter (principal); W57.XXXA Bitten or stung by nonvenomous insect and other nonvenomous arthropods, initial encounter; Y93.9 Activity, unspecified; Y92.9 Unspecified place or not applicable; Y99.9 Unspecified external cause status | CPT/HCPCS: 99212 ==

== ENCOUNTER 2025-06-18 08:35 | Outpatient (AMB) | payer MEDICARE, SELFPAY ==
--- NOTE | 2025-06-18 08:49 | AM.OFFWIN_ITS ---
Intake Vital Signs 06/18/25 08:54 Height 5 ft 4 in Weight 153 lb BMI 26.3 BP 132/67 Blood Pressure Location Rt brachial Position Sitting Pulse 84 Pulse Source Pulse Oximeter Temp 98.3 F Temp Source Oral Pulse Oximetry (%) 97 Oxygen Delivery Method Room Air Intake Visit Reasons: EP-uti Intake Note: pt presents with urine urgency for a month Patient Tobacco Use Status: Never used Tobacco Allergies latex (LATEX) Allergy (Intermediate, Verified 06/18/25 09:02) SWELLING sulfamethoxazole (From Bactrim) Allergy (Intermediate, Verified 06/18/25 09:02) Rash trimethoprim (From Bactrim) Allergy (Intermediate, Verified 06/18/25 09:02) Rash Do you need a note to return to daycare/school/sports/work: No HPI EP-uti HPI Details This is an 85-year-old female patient who presents to the walk-in clinic today with report of a 1-1/2 month history of urinary urgency. She repor ts some intermittent lower back pain as well. Denies any urinary odor. Denies any dysuria. Denies any fevers/chills. States that she feels like she is fully emptying her bladder when urinating. She feels like the urgency has been increasing, and sometimes she states that she can not make it to the bathroom in time. Denies any bowel complaints. [facility] Medical History Hypothyroidism Hyperlipidemia Surgical History History of appendectomy History of tonsillectomy History of hysterectomy Social History Housing: Condominium Alcohol intake: never Patient Tobacco Use Status: Never used Tobacco e-Cigarette/Vaping Use: Never Used Second Hand Smoke Exposure: No service: No Current occupational status: employed Cognitive needs: No Hearing needs: No Vision needs: No Review of Systems Const All systems reviewed & are unremarkable except as noted in HPI and below Physical Exam Vital Signs: Last Vital Signs Temp 98.3 F 06/18/25 08:54 Pulse 84 06/18/25 08:54 BP 132/67 06/18/25 08:54 Pulse Ox 97 06/18/25 08:54 Oxygen Delivery Method Room Air 06/18/25 08:54 BMI result Body Mass Index 26.3 Const General: cooperative, healthy appearing, comfortable and no acute distress Resp Effort & Inspection: normal respiratory effort Auscultation: clear to auscultation bilaterally Cardio Rate: regular rate Rhythm: regular rhythm General: Yes bladder normal to palpation and Yes no CVA tenderness Bimanual exam- vagina & uterus: bladder normal to palpation Back/Spine/Pelvis Back: no CVA tenderness Thoracic/Lumbar Spine: thoracic and lumbar spine normal to inspection and paraspinal muscle tenderness bilaterally in the lower lumbar Skin General skin exam: no rashes or lesions noted Extrem General: Yes no clubbing, cyanosis or edema Psych Appearance: grossly normal Mental Status: mental status grossly normal Speech and movement: Normal speech and movement present Assessment & Plan Assessment & Plan (1) Urinary urgency: Code(s): R39.15 - Urgency of urination Plan: Patient with urinary urgency. Urine dip was normal however this has been ongoing for over one month. Will send urine culture, which I discussed with patient. She has some vague lower back pain and myofascial lumbar tenderness however no distinct CVA. She may benefit from urology consult given the increasing urgency. She would like to pursue this. I will message her PCP to discuss. Patient will return to the clinic if she develops any worsening symptoms, fevers, chills, or dysuria. She verbalizes understanding and agrees to plan. Orders: Orders AMB Urinalysis Automated Today Z13.9 - Encounter for screening, unspecified Urine Culture Today R39.15 - Urgency of urination Coding Level of Care Code Est Pt Level 4 (92886) Diagnoses Urinary urgency R39.15
[2025-06-18 08:54] VITALS: BP 132/67; PULSE 84; TEMP 36.8; O2SAT 97; BMI 26.3
--- OUTSIDE RECORDS SUMMARY | 2025-06-18 09:07 | XMS_ITS | Clinical Summary ---
Author Organization [facility] Address [address] [place] [id number] Phone Care Team Providers Care Test Analyst Name Role Phone Pcp, Unknown Primary Care Provider Unavailabl e Allergies No known active allergies Medications No known medications Encounters Date Type Department Care Team Description 05/18/2025 12:05 AM EDT - 05/18/2025 12:06 AM EDT Emergency [facility] [address] [place] [address] Discharge Disposition: Left Without Being Seen from [...] Medical Devices Not on file Care Teams Test Analyst Relationship Specialty Start Date End Date Pcp, Unknown PCP - General 05/17/25 Additional Source Comments The information contained in this document represents components of the legal health record. It is not the complete legal health record.[facility]
--- OUTSIDE RECORDS SUMMARY | 2025-06-18 09:07 | XMS_ITS | Patient Health Record ---
Author Organization [facility] Address [address] [place] [address] Care Team Providers Care Senior Technical Analyst Name Role Phone Rachel LINN, Thaddeus Primary Care Provider Angel Heaton Unavailable [phone] Allergies Allergen (clinical drug ingredient) Drug/Non Drug Allergy documented on EMR Reaction Allergy Type Onset Date Status Penicillin Unknown Drug Allergy Active Reason For Referral No Information Medications Medication SIG (Take, Route, Frequency, Duration) Notes Start Date End Date Status Levothyroxine Sodium Active Hyoscyamine Sulfate 0.125 Milligram 1-2 tabs po Q 6 hours prn abdominal cramps/discomfort; Duration: 30 03/16/2014 Active Omeprazole Active Amitriptyline HCl Ac tive Atorvastatin Calcium Active Sgyhnrecvo-Nxzxhqm-Xjmxeawv Active Problems Problem Type SNOMED Code ICD Code Onset Dates Problem Status W/U Status Risk Notes 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 Problem Irritable bowel syndrome (35803860) Irritable bowel syndrome (564.1) Active confirmed Problem Diarrhea (86070459) Diarrhea (787.91) Active confirmed Problem Anemia (684434067) Anemia (285.9) Active confir med Problem Gastroesophageal reflux disease (635367649) GERD (gastroesophag eal reflux disease) (530.81) Active confirmed Problem Iron deficiency anemia (59116156) Iron deficiency anemia (280.9) Active confirmed Problem Iron deficiency anemia (46899330) Anemia, iron deficiency (280.9) Active confirmed Plan Of Treatment Pending Test Test Name Order Date IRON + IBC (FE) 02/01/2013 FERRITIN 02/01/2013 VITAMIN B12 AND FOLATE 02/01/2013 Future Test Test Name Order Date UPPER GI ENDOSCOPY 04/07/2013 COLONOSCOPY 04/07/2013 Insurance Providers Payer Name Payer Address Payer Phone Subscriber Number Group Number Insured Name Patient Relationship to Insured Coverage Start Date Coverage End Date [facility] [address] [place] [phone] [id number] MAEVE RODAS Self - patient is the insured MEDICARE OF [place] [address] [place] [address] [id number] MAEVE RODAS Self - patient is the insured Medical (General) History Medical History History ICD Code UPPER ENDOSCOPY IN 08/2010-mo derate sized HH and small area of Clinton's-no dysplasia; bx neg for celiac disease MIGRAINES HYPOTHYROIDISM Denies NE,DM,CVA,renal disease Neg colonoscopy in 06/[address] Dixon [facility] Hyperlipidemia Mild asthma--uses an inhaler prn ? of ischemic colitis in 07/[address] n abnormal CT Upper endo in 04/2013--no dysplasia in th e Clinton's, HH, no celiac disease Colonoscopy in 04/2013-no spencer yps, nonspecific inflammation--no definitive colitis Surgical History Surgery Date(Month/Year) Benign breast lumps Appy ALEJANDRA with BSO--endometriosis PARTIAL THYROIDECTOMY BLADDER SUSPENSION
== END 2025-06-18 09:33 | disposition home or self-care (01) ==
PROVIDERS: Visit Provider Nurse Practitioner Family
DX: R39.15 Urgency of urination (principal); Z13.9 Encounter for screening, unspecified

== ENCOUNTER 2025-06-18 08:35 | Outpatient (REF) | payer MEDICARE, SELFPAY | END 2025-06-18 08:36 | disposition home or self-care (01) | LOC: HO.LAB 08:35 | DX: R39.15 Urgency of urination (principal) | CPT/HCPCS: 81003; 87086; 99212 ==

== ENCOUNTER 2025-06-24 10:41 | Outpatient (REF) | payer MEDICARE, SELFPAY ==
[2025-06-24 11:58] LABS: MANUAL DIFF FLAG NO
[2025-06-24 12:23] LABS: Hematocrit 39.8 % (37.0-47.0); Hemoglobin 12.7 g/dl (12.0-16.0); Imm Gran Abs Auto 0.01 X10*3/uL (0.00-0.03); Imm Gran Pct Auto 0.2 % (0.0-0.4); Lymphocytes Absolute Auto 1.8 X10*3/uL (1.2-4.9); Mean Corpuscular HGB Conc 31.9 g/dl (31.0-35.0); Mean Corpuscular Hemoglobin 28.5 pg (27.0-33.0); Mean Corpuscular Volume 89.4 fL (80.0-98.0); NRBC Abs Auto 0.000 X10*3/uL (0.0-0.012); NRBC Pct Auto 0.0 /100WBC (0.0-0.2); Platelet Count 270 X10*3/uL (160-400); Red Blood Count 4.45 X10*6/uL (4.20-5.50); White Blood Count 4.9 X10*3/uL (4.8-10.8)
[2025-06-24 12:37] LABS: Appearance Urine Clear; Glucose Urine UA Negative (Negative); PH 5.5 (5.0-9.0); Specific Gravity - Urine 1.010 (1.005-1.025); UMIC TRIGGER UACC YES
[2025-06-24 12:54] LABS: UACC Culture Trigger YES
--- OUTSIDE RECORDS SUMMARY | 2025-06-24 14:44 | XMS_ITS | Clinical Summary ---
Author Organization [facility] Address [address] [place] [address] Phone Care Team Providers Care Manager Business Operations Name Role Phone Pcp, Unknown Primary Care Provider Unavailabl e Allergies No known active allergies Medications No known medications Encounters Date Type Department Care Team Description 05/18/2025 12:05 AM EDT - 05/18/2025 12:06 AM EDT Emergency [facility] [address] [place] [address] Discharge Disposition: Left Without Being Seen from [...] on patient's age to complete this topic IPV VACCINES Aged Out No longer eligi ble based on patient's age to complete this topic MENINGOCOCCAL VACCINES (ACWY) Aged Out No longer eligible based on patient's age to complete this topic MENINGOCOCCAL VACCINES (B) Aged Out N o longer eligible based on patient's age to complete this topic Medical Devices Not on file Care Teams Manager Business Operations Relationship Specialty Start Date End Date Pcp, Unknown PCP - General 05/17/25 Additional Source Comments The information contained in this document represents components of the legal health record. It is not the complete legal health record.[facility]
== END 2025-06-24 10:42 | disposition home or self-care (01) ==
LOC: HO.LAB 10:41
PROVIDERS: Visit Provider Student in an Organized Health Care Education/Training Program
DX: R39.15 Urgency of urination (principal); R53.83 Other fatigue; R30.0 Dysuria
CPT/HCPCS: 36415; 81001; 84443; 85025; 87086; 99214